=== PATIENT | female | born 1985 | race Two or more races ===

== ENCOUNTER 2023-05-04 09:00 | Outpatient (AMB) | payer OTHER, SELFPAY ==
[2023-05-04 09:06] VITALS: BP 116/64; PULSE 68; RESP 16; O2SAT 98
--- NOTE | 2023-05-04 09:06 | A.OFFPC_ITS ---
Vital Signs 05/04/23 09:06 Height 5 ft 6 in Weight 186 lb BMI 30.0 BP 116/64 Blood Pressure Location Lt brachial Position Sitting Respiration 16 Pulse 68 Pulse Source Pulse Oximeter Pulse Oximetry (%) 98 Oxygen Delivery Method Room Air Intake Visit Reasons: Annual PE Intake Note: Patient is here for her physical. Allergies No Known Allergies Allergy (Verified 05/04/23 09:09) Tobacco use date assessed: 05/04/23 Dental Screening Dental Screen Date: 05/04/23 Did you have a dental visit in the last 12 months?: Yes Did you have a dental problem in the last 6 months where you did not have access to dental care?: No Was dental information given to patient?: Patient has dentist HPI Annual PE HPI Details 37 y/o female presents for a CPE with f/ u labs and health maintenance. Has?not?been?seen?in?a?couple?of?years. No recent pap smear. Would like referral to [facility]. Would like to f/u / [facility] for Oral CA No recent labs to review. Hx oral cancer. Pt reports a bump on the back of her neck. She reports she has not been exercising much. [facility] Medical History (Updated 05/04/23 @ 10:00 by Todd Bryan) No pertinent past medical history Surgical History (Updated 04/07/23 @ 13:03 by Naty Galvez) History of breast augmentation History of palate surgery Family History (System 04/07/23 @ 13:03 by Naty Galvez) Mother Bipolar 1 disorder Father No problems noted. 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 1. Little interest or pleasure in doing things: not at all 2. Feeling down, depressed, or hopeless: not at all 3. Trouble falling or staying asleep, or sleeping too much: not at all 4. Feeling tired or having little energy: not at all 5. Poor appetite or overeating: not at all 6. Feeling bad about yourself - or that you are a failure or have let yourself or your family down: not at all 7. Trouble concentrating on things, such as reading the newspaper or watching television: not at all 8. Moving or speaking so slowly that other people could have noticed. Or the opposite - being so fidgety or restless that you have been moving around a lot more than usual: not at all 9. Thoughts that you would be better off or of hurting yourself in some way: not at all Total score: 0 Source: Developed by Drs. Daniel Fox, Tena Mcconnell, Donnie Morris and colleagues, with an educational aleks from [employer]. Thrive Questionnaire Date Thrive assessed: 01/21/21 I am a: Patient What is your living situation today?: I have a steady place to live Within the past 12 months, did the food you bought not last and you didn't have the money to get more?: Never true Within the past 12 months, did you worry whether your food would run out before you got money to buy more?: Never true Do you have trouble paying for medicines?: No Do you have trouble getting transportation to medical appointments?: No Do you have trouble paying your heating and electricity bill?: No Do you have trouble taking care of your child, family member or friend?: No Do you have trouble with day-to-day activities such as bathing, preparing meals, shopping, managing finances, etc.?: No Are you currently unemployed and looking for a job?: No Are you interested in more education?: Yes AUDIT C Alcohol Use Questionnaire (AUDIT-C) 1. How often do you have a drink containing alcohol?: Monthly or less 2. How many drinks containing alcohol do you have on a typical day when you are drinking?: 1 or 2 3. How often do you have six or more drinks on one occasion?: Never Total Score: 1 VERÓNICA-7 AMB Questionnaire VERÓNICA-7 Date VERÓNICA - 7 assessed: 05/04/23 Feeling nervous, anxious, or on edge: 1 = Several days Not being able to stop or control worryin = Nearly every day Worrying too much about different things: 3 = Nearly every day Trouble relaxin = Nearly every day Being so restless that it is hard to sit still: 3 = Nearly every day Becoming easily annoyed or irritable: 1 = Several days Feeling afraid as if something awful might happen: 0 = Not at all Total VERÓNICA-7 score (0-4 normal; 5-9 mild; 10-14 moderate; 15-21 severe): 14 Source: Developed by Drs. Daniel Fox, Tena Mcconnell, Donnie Morris and colleagues, with an educational aleks from [employer]. Review of Systems Const Denies chills, Denies fatigue, Denies fever(s), Denies headache(s) and Denies weakness Eyes Denies change in vision ENT Denies dizziness, Denies headache(s), Denies hearing loss, Denies nasal congestion, Denies sinus pain, Denies sinus pressure and Denies sore throat Card Denies chest pain, Denies lightheadedness, Denies dyspnea and Denies other (palpitations) Resp Denies cough, Denies dyspnea and Denies wheezing GI Denies abdominal pain, Denies melena, Denies hematochezia, Denies change in bowel habits, Denies dyspepsia and Denies nausea Denies hematuria and Denies dysuria Musc Denies abnormal gait, Denies myalgias, Denies arthralgias, Denies numbness and Denies tingling Skin/Breast Denies rash, Denies unusual bruising and Denies wounds Neuro Denies abnormal gait, Denies dizziness, Denies headache(s), Denies memory loss, Denies numbness, Denies Sensory deficit (Neuro), Denies tingling and Denies weakness Psych Denies anxiety, Denies depression and Denies memory loss Endo Denies cold intolerance, Denies fatigue, Denies heat intolerance, Denies polydipsia and Denies polyuria Enoch/Lymph Denies easy bleeding and Denies easy bruising Aller/Immun Denies wheezing Physical exam (Primary Care) Vital Signs: Last Vital Signs Pulse 68 05/04/23 09:06 Resp 16 05/04/23 09:06 BP 116/64 05/04/23 09:06 Pulse Ox 98 05/04/23 09:06 Oxygen Delivery Method Room Air 05/04/23 09:06 BMI result Body Mass Index 30.0 Tobacco/Smoking Status: Tobacco use Status Tobacco use date assessed 05/04/23 05/04/23 09:16 Patient Tobacco Use Status Never used Tobacco 05/04/23 09:16 e-Cigarette/Vaping Use Never Used 05/04/23 09:16 PHQ-9: PHQ-9 Score PHQ-9: Total score 0 05/04/23 09:16 Thrive Assessment: Date of Thrive Assessment Date Thrive assessed 01/21/21 05/04/23 09:16 Const General: no acute distress, well developed, alert and awake Nutritional Appearance: well nourished Orientation/consciousness: patient oriented x3 HENMT Head: Yes normocephalic and Yes atraumatic Ears: hearing grossly normal bilaterally and TM's normal bilaterally General nose exam: Normal external nose present and Normal nares present Mouth: Normal oral and palatal mucosa present and moist mucous membranes Teeth and gingiva: dentition normal Throat: Yes posterior oropharynx normal Eyes General: appearance normal, both eyes and all related structures Pupils: Equal, round and reactive pupils present and Pupil accommodation reflex normal EOM: EOMs intact bilaterally Neck Neck: Yes normal visual inspection, Yes no lymphadenopathy and Yes trachea midline Thyroid: Thyroid normal Carotids: no bruits Lymphatic: no lymphadenopathy noted Chest Chest palpation & inspection: normal inspection of the chest Resp Effort & Inspection: normal respiratory effort Auscultation: clear to auscultation bilaterally Cardio Rate: regular rate Rhythm: regular rhythm Heart sounds: S1 normal heart sound present, S2 normal heart sound present, no gallops, no murmurs and no rubs Bruits: no abdominal aortic bruits and no carotid bruits GI Palpation (GI): No Abdominal aortic bruit present, Soft to palpation, nontender, No hepatosplenomegaly present and No Rebound tenderness present Auscultation: normal bowel sounds General: Yes no CVA tenderness Back/Spine/Pelvis Back: no CVA tenderness Cervical Spine: cervical ROM normal and No Cervical spine tenderness Thoracic/Lumbar Spine: thoraco-lumbar ROM normal, No pain with thoraco-lumbar ROM, No thoracic spinal tenderness and No lumbar spinal tenderness Skin Lesions: no lesions Rashes: no rashes Trauma: no lacerations or abrasions Wounds: no wounds Nails: normal Neuro General: patient oriented x3 Cranial nerves: Yes Equal, round and reactive pupils present Cognition (Neuro): normal cognition Gait exam (Neuro): Normal gait present Motor exam (neuro): 5/5 motor strength present throughout Sensory Exam: No Sensory deficit (Neuro) Deep tendon reflexes (DTR's): Right patellar reflex intensity grade: 2+ and Left patellar reflex intensity grade: 2+ Extrem General: Yes normal to inspection and No edema Psych Appearance: grossly normal Affect: normal affect Attitude: cooperative Thought process: Normal thought process present Assessment and Plan Assessment & Plan (1) Adult general medical exam: Code(s): Z00.00 - Encounter for general adult medical examination without abnormal findings Plan: 37-year-old?female?presents?for?complete?physical?exam Encouraged?healthy?diet?with?active?lifestyle?and?plenty?of?exercise. (2) Screening for cervical cancer: Code(s): Z12.4 - Encounter for screening for malignant neoplasm of cervix Plan: Referred?to?OBGYN (3) H/O oral cancer: Code(s): Z85.819 - Personal history of malignant neoplasm of unspecified site of lip, oral cavity, and pharynx Plan: Prior?history?of?oral?cancer?found?at?[facility]. She?was to?have?follow-up?at?[facility]?but?says?that?this?di d?not?occur?due?to?COVID?pandemic. Referred?back?to?[facility] Orders: Orders Comprehensive [place]. Panel Fast Today Z00.00 - Encounter for general adult medical examination without abnormal findings Complete Blood Count Auto Diff Today Z00.00 - Encounter for general adult medical examination without abnormal findings Microalbumin, Random (w Creat) Today I10 - Essential (primary) hypertension TSH reflex Free T4 Today Z00.00 - Encounter for general adult medical examination without abnormal findings Influenza [id number] Immunization Today Z23 - Encounter for immunization Lipid Panel Today Z00.00 - Encounter for general adult medical examination without abnormal findings UA and rflx microscopic Today Z00.00 - Encounter for general adult medical examination without abnormal findings Referrals Ear/Nose/Throat Referral Z85.819 - Personal history of malignant neoplasm of unspecified site of lip, oral cavity, and pharynx BOTTLE CASER Referral Z12.4 - Encounter for screening for malignant neoplasm of cervix Medications: New flu vacc [id number] 6mos up(PF) 0.5 mL IM ONCE 0.5 mL 0RF Z23 - Encounter for immunization Coding Level of Care Code Est Pt Level 3 (48457) Est Pt Prev Care 18-39y(51134) Diagnoses Adult general medical exam Z00.00 Screening for cervical cancer Z12.4 H/O oral cancer Z85.819
== END 2023-05-04 10:35 | disposition home or self-care (01) ==
PROVIDERS: PCP Family Medicine; Visit Provider Family Medicine
DX: Z00.00 Encounter for general adult medical examination without abnormal findings (principal); Z85.819 Personal history of malignant neoplasm of unspecified site of lip, oral cavity, and pharynx; Z23 Encounter for immunization
CPT/HCPCS: 90471; 90686; 99395

== ENCOUNTER 2023-05-04 10:39 | Outpatient (REF) | payer OTHER, SELFPAY ==
[2023-05-04 14:21] LABS: MANUAL DIFF FLAG NO
[2023-05-04 14:24] LABS: Basophils Percent Auto 0.4 % (0-2); Eosinophils Absolute Auto 0.1 X10*3/uL (0.0-0.4); Eosinophils Percent Auto 1.5 % (0-4); Hematocrit 40.9 % (37.0-47.0); Hemoglobin 13.6 g/dl (12.0-16.0); Imm Gran Abs Auto 0.02 X10*3/uL (0.00-0.03); Imm Gran Pct Auto 0.3 % (0.0-0.4); Lymphocytes Absolute Auto 2.8 X10*3/uL (1.2-4.9); Lymphocytes Percent Auto 41.9 % (20-40); Mean Corpuscular HGB Conc 33.3 g/dl (31.0-35.0); Mean Corpuscular Hemoglobin 29.8 pg (27.0-33.0); Mean Corpuscular Volume 89.7 fL (80.0-98.0); Mean Platelet Volume 8.7 fL (9.4-12.3); Monocytes Absolute Auto 0.6 X10*3/uL (0.1-1.2); Monocytes Percent Auto 8.5 % (2-11); Neutrophils Absolute Auto 3.2 x10*3/uL (2.0-8.3); Neutrophils Percent Auto 47.4 % (45-73); Platelet Count 510 X10*3/uL (160-400); Red Blood Count 4.56 X10*6/uL (4.20-5.50); Red Cell Distribution Width 13.5 % (11.0-16.0); White Blood Count 6.7 X10*3/uL (4.8-10.8)
[2023-05-04 14:36] LABS: Alanine Aminotransferase 13 U/L (0-31); Albumin Level 4.1 g/dL (3.5-5.0); Alkaline Phosphatase 49 U/L (39-117); Anion Gap 12 (12-20); Aspartate Amino Transferase 15 U/L (5-31); Bilirubin Total 0.3 mg/dL (0.0-1.0); Blood Urea Nitrogen 8 mg/dL (9-16); Calcium 9.4 mg/dL (8.4-10.2); Carbon Dioxide 27 mmol/L (22-29); Chloride 104 mmol/L (96-108); Cholesterol 199 mg/dL (<200); Estimated Glomerular Filt Rate > 60; Glucose Fasting 91 mg/dL (60-99); HDL Cholesterol 64 mg/dL (>40); LDL Cholesterol Calculated 119 mg/dL (<100); Potassium 4.5 mmol/L (3.3-5.1); Sodium 138 mmol/L (135-145); Total Protein 7.7 g/dL (6.5-8.0); Triglycerides 84 mg/dL (<150)
[2023-05-04 14:56] LABS: TSH reflex Free T4 1.86 uIU/mL (0.32-4.0)
[2023-05-04 15:05] LABS: Appearance Urine Cloudy; Color Urine Yellow; Glucose Urine UA Negative (Negative); Leukocyte Esterase Urine Negative (Negative); Nitrite Urine Negative (Negative); Specific Gravity - Urine 1.015 (1.005-1.025); Urine Blood Negative (Negative); Urine Ketones Negative (Negative); Urine Protein Negative (Neg-Trace)
[2023-05-04 15:35] LABS: Creatinine Urine 80.93 mg/dL; Microalbumin Urine < 5.0 mg/L
== END 2023-05-04 10:40 | disposition home or self-care (01) ==
LOC: HO.WFDLDS 10:39
PROVIDERS: Visit Provider Family Medicine
DX: Z00.00 Encounter for general adult medical examination without abnormal findings (principal); I10 Essential (primary) hypertension
CPT/HCPCS: 36415; 80053; 80061; 81003; 82043; 82570; 84443; 85025

== ENCOUNTER 2023-08-11 10:36 | Outpatient (REF) | payer OTHER, SELFPAY ==
[2023-08-12 01:49] LABS: CT PCR NOT DETECTED (Not Detect.); NG PCR NOT DETECTED (Not Detect.)
[2023-08-12 14:50] LABS: BV Int Neg Control Negative (Negative); BV Int Pos Control Positive (Positive)
[2023-08-18 22:08] LABS: HPV mRNA E6/E7 rflx Not Detected (Not Detected)
== END 2023-08-11 10:37 | disposition home or self-care (01) ==
LOC: HO.LAB 10:36
PROVIDERS: PCP Family Medicine; Visit Provider Advanced Practice Midwife
DX: Z01.419 Encounter for gynecological examination (general) (routine) without abnormal findings (principal); Z85.819 Personal history of malignant neoplasm of unspecified site of lip, oral cavity, and pharynx; Z98.82 Breast implant status; Z20.2 Contact with and (suspected) exposure to infections with a predominantly sexual mode of transmission
CPT/HCPCS: 0353U; 87480; 87510; 87624; 87660; 88142

== ENCOUNTER 2023-08-11 10:36 | Outpatient (AMB) | payer OTHER, SELFPAY ==
--- NOTE | 2023-08-11 10:43 | MHC.OFFVIS ---
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 She delivered all 3 of her children at [facility] vaginally. Around 2013 she was diagnosed with oral cancer and had it removed from her palate and then it recurred 5 years later. She was originally diagnosed by her dentist who had done the biopsy she was referred to ENT and then when it recurred she was referred to [facility]. She saw a wonderful doctor who made her prosthesis and she had multiple visits with him at the time when there was being fitted. He has since and she is concerned about what will happen if it ever breaks. Her next appointment with [facility] is in the fall. She also was told that the kind of cells that were involved in her cancer might have some connection with breast cancer. She recalls being told that there was not any HPV connection at all. She said that she felt very barbara that she did not not lose her teeth or anything in the surgery or the treatment. [facility] Medical History No pertinent past medical history Surgical History History of breast augmentation History of palate surgery Family History Mother Bipolar 1 disorder Father No problems noted. 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 [employer] Cognitive needs: No Hearing needs: No Vision needs: No Female Reproductive History Menstrual Age of Menarche: 11 Duration of menses: 3-5 days Date of last menstrual period: 07/16/23 control method: none and other (vasectomy) Total pregnancies: 3 Full term: 3 Date of last pap smear: 05/24/18 (negative) History of abnormal pap smear: No Physical Exam Const General: healthy appearing, comfortable, no acute distress, well developed and alert Nutritional Appearance: average body habitus Orientation/consciousness: patient oriented x3 Limitations: no limitations HEENT Other: Patient removed her upper palate prosthesis for which she had a special name to show it to me. Head: Yes normocephalic Neck Neck: Yes normal visual inspection Chest Other: Patient has bilateral breast implants Chest palpation & inspection: normal inspection of the chest Breast/axilla inspection: normal inspection of the breasts and normal inspection of the axillae Breast/axilla palpation: normal palpation of the breasts and normal palpation of the axillae Resp Effort & Inspection: normal respiratory effort GI Inspection: Yes normal to inspection, No Abdominal wall edema and No distended Palpation (GI): Soft to palpation and nontender Other: External vaginal exam completely within normal limits vagina pink and moist cervix multiparous pink smooth completely normal with small nabothian cyst at 04:00 o'clock. Pap and testing done for gonorrhea chlamydia trichomoniasis Gardnerella and Mera. Uterus is small retroverted mobile nontender adnexa nontender very excellent tone with Kegel. General: Yes bladder normal to palpation External Female Exam: normal external appearance and normal appearance of the urethra Speculum Exam - Vagina: normal appearance of the vagina, normal palpation and normal vaginal discharge Speculum Exam - Cervix: normal appearance of the cervix, normal palpation and nontender Bimanual exam- vagina & uterus: normal bimanual exam, normal palpation, uterine size normal, bladder normal to palpation, consistency normal, normal palpation, uterine mobility normal, uterine shape normal, No Cervical tenderness present, non-tender and no cervical motion tenderness Bimanual Exam- Adnexa, other: normal adnexae, no masses, normal and No adnexal tenderness Neuro General: patient oriented x3 Assessment & Plan Assessment & Plan (1) Screening for cervical cancer: Code(s): Z12.4 - Encounter for screening for malignant neoplasm of cervix (2) H/O oral cancer: Comment: Two thousand [age] and recurred 5 years later has prosthesis for her palate. Is followed at [facility]. Code(s): Z85.819 - Personal history of malignant neoplasm of unspecified site of lip, oral cavity, and pharynx (3) History of bilateral breast implants: Code(s): Z98.82 - Breast implant status Plan -----Discussed in this visit the following: healthy balanced diet, regular and consistent exercise, getting recommended health screens, doing the best she can for her particular health concerns, kegel exercises, pap smear screening and followup recommendations, mammography screening and SBE, normal changes in cycles in her life stage--- . Reviewed Paps smear screening and that if this Pap smear is normal she would not be due for another 1 for 5 years reviewed the potential for HPV to be implicated in oral cancers but she says she was told that in her case it was not that it was a gene mutation. She remembers being told something about the those kinds of cells that were implicated in her cancer also have some connection with breast cancers so I recommend that she follow through and inquire with [facility] as to whether not she would qualify for early mammograms. She is also interested in getting her breast implants removed so she may have this same conversation with them or other providers. Additionally the physician who crafting her very specific oral prosthesis has and he had a specialty skill that the closest other practitioner who could craft 1 at the time lived in [place]. She has had nightmares of it breaking and that she will be left with nothing, So I recommend having that conversation also with her providers at [facility] as to whether not a 3D replica of her prosthesis can be made before something happens to it. Coding Level of Care Code New Pt Prev Care 18-39yr([id number] Diagnoses Screening for cervical cancer Z12.4 H/O oral cancer Z85.819 History of bilateral breast implants Z98.82
[2023-08-11 10:48] VITALS: BP 120/62; BMI 28.4
== END 2023-08-11 11:33 | disposition home or self-care (01) ==
LOC: HO.HWSM 10:36
PROVIDERS: PCP Family Medicine; Visit Provider Advanced Practice Midwife
DX: Z01.419 Encounter for gynecological examination (general) (routine) without abnormal findings (principal); Z98.82 Breast implant status; Z85.819 Personal history of malignant neoplasm of unspecified site of lip, oral cavity, and pharynx
CPT/HCPCS: 99385

== ENCOUNTER 2024-08-15 09:31 | Outpatient (AMB) | payer OTHER, SELFPAY ==
--- NOTE | 2024-08-15 09:32 | MHC.OFFVIS ---
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 She is not having any lead neurodiagnostic technologist concerns whatsoever. She gets regular periods her has a vasectomy. 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 She is very busy with her 3 small children. She had an appointment scheduled to be seen for her regular checkup at [facility] but her insurance or something had changed and they needed a referral and the referral was not able to be sent in time so that appointment got canceled. She has left messages for her primary and has not been able to meet with success about getting that referral sent. Additionally she has not been able to see the dental specialists she would have needed to follow-up with whom to discuss her prosthesis. As far as she remembers she was told that [facility] that she did not need any earlier breast cancer screening. Please see notes from last year's visit. Her breast implants were placed when she was young for cosmetic reasons/ [facility] Medical History (Updated 08/15/24 @ 10:13 by Fani Lantigua CNM) No pertinent past medical history Surgical History (Updated 08/15/24 @ 10:13 by Fani Lantigua CNM) History of breast augmentation Family History Mother Bipolar 1 disorder Father No problems noted. 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 [employer] Cognitive needs: No Hearing needs: No Vision needs: No Female Reproductive History Menstrual Age of Menarche: 11 Duration of menses: 3-5 days Date of last menstrual period: 07/18/24 control method: other (vasectomy) Total pregnancies: 3 Full term: 3 Number of Living Children: 3 Date of last pap smear: 08/12/23 Physical Exam Vital Signs: Last Vital Signs BP 94/60 08/15/24 09:33 BMI result Body Mass Index 27.9 Const General: healthy appearing, comfortable, no acute distress, well developed and alert Nutritional Appearance: average body habitus Orientation/consciousness: patient oriented x3 Limitations: no limitations HEENT Head: Yes normocephalic Neck Neck: Yes normal visual inspection Chest Chest palpation & inspection: normal inspection of the chest Breast/axilla inspection: normal inspection of the breasts and normal inspection of the axillae Breast/axilla palpation: normal palpation of the breasts and normal palpation of the axillae Resp Effort & Inspection: normal respiratory effort GI Inspection: Yes normal to inspection, No Abdominal wall edema and No distended Palpation (GI): Soft to palpation and nontender Other: Normal external exam vagina pink clear healthy appearing normal appearing healthy mucous cervix multiparous pink smooth mobile nontender uterus midposition mobile nontender adnexa nontender extremely good tone with Kegel. General: Yes bladder normal to palpation External Female Exam: normal external appearance and normal appearance of the urethra Speculum Exam - Vagina: normal appearance of the vagina, normal palpation and normal vaginal discharge Speculum Exam - Cervix: normal appearance of the cervix, normal palpation and nontender Bimanual exam- vagina & uterus: normal bimanual exam, normal palpation, uterine size normal, bladder normal to palpation, consistency normal, normal palpation, uterine mobility normal, uterine shape normal, No Cervical tenderness present, non-tender and no cervical motion tenderness Bimanual Exam- Adnexa, other: normal adnexae, no masses, normal and No adnexal tenderness Neuro General: patient oriented x3 Results Reviewed Results Reviewed: Name: Kannan Townsend Age/Sex: 37/F Attending: Fani Lantigua CNM : 1985 Submitted by: Fani Lantigua CNM Copies to: Froylan Broussard MD MR #: [id number] Status: DEP REF Collected: 08/11/23 Location: .LAB Received: 08/12/23 Interpretation Satisfactory for evaluation. Moderate inflammation. Negative for intraepithelial lesion or malignancy. HPV mRNA E6/E7: NOT DETECTED This assay detects E6/E7 viral messenger RNA (mRNA) from 14 high-risk HPV types (16, 18, 31, 33, 35, 39, 45, 51, 52, 56, 58, 59, 66, 68) HPV testing performed by [facility], [place], [place]. See reference laboratory portion of the EMR for entire report. Clinical Information LMP: 07/16/2023 Previous PAP test: 2018, WNL Material Received ThinPrep-Cervical Copies To Froylan Broussard MD [address] [facility]. [place], [place] [id number] Fani Lantigua [address] Correa [address] [place] [address] [phone] Electronically Signed By: NNEKA Edwards (ASCP) 08/24/23 0708 The Pap Test is a screening procedure with the inherent possibility of both false negative and false positive results. Results should be interpreted in the context of historic and current clinical findings. Reliability of the Pap Test is enhanced by performing the test on a regular repetitive basis. 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 Is followed at [facility]. Code(s): Z85.819 - Personal history of malignant neoplasm of unspecified site of lip, oral cavity, and pharynx Category: Medical (4) Breast cancer screening: Code(s): Z12.39 - Encounter for other screening for malignant neoplasm of breast Category: Medical (5) Well woman exam with routine gynecological exam: Code(s): Z01.419 - Encounter for gynecological examination (general) (routine) without abnormal findings Category: Medical Plan -----Discussed in this visit the following: healthy balanced diet, regular and consistent exercise, getting recommended health screens, doing the best she can for her particular health concerns, kegel exercises, pap smear screening and followup recommendations, mammography screening and SBE, normal changes in cycles in her life stage--- . Discussed her history of the oral cancer. She is going to just go see her primary care provider to work on getting the referral back to [facility] so that she can be seen I recommend just revisiting the conversation about whether not she needs any other early screening for breast cancers even what she was told about the cells in her cancer that were similar to those found in breast cancer. Otherwise breast cancer screening with started age 40. reviewed that her Pap smear was negative r Pap in 2023 her ne smear xt Pap is due in 2028. We sa to the seen every year y but she has no lead neurodiagnostic technologist or control concerns she may schedule her appointments accordingly if she needs to be seen more by primary care and [facility] and dental prosthetic providers. This note is constructed using voice recognition software. While every effort has been made to ensure accuracy, splitter head errors may have been included. Coding Level of Care Code Est Pt Prev Care 18-39y([id number]) Diagnoses Screening for cervical cancer Z12.4 History of bilateral breast implants Z98.82 H/O oral cancer Z85.819 Breast cancer screening Z12.39 Well woman exam with routine gynecological exam Z01.419
[2024-08-15 09:33] VITALS: BP 94/60; BMI 27.9
--- OUTSIDE RECORDS SUMMARY | 2024-08-15 10:20 | XMS_ITS | Continuity of Care Document ---
Author Name [facility] Organization [facility] Care Team Providers Care Credit Portfolio Advisor Name Role Phone [facility] Unavailable Unavailable Problems Combined list of problems from Department of Defense and Veterans Affairs facilities. It does not include entries that were removed or entered in error. Problem Status Onset Date Problem Type Date of Resolution Comments Source constipation functional Inactive 8 Condition DoD nonorganic sleep disorders Inactive Condition DoD conjunctivitis acute left eye Inactive Condition early conjunctivitis erythomycin ointment. apply to left eyelid TID DoD Immunizations Combined list of available immunizations from the Department of Defense and Veterans Affairs facilities. Immunization Series Date Given Administered By Site Reaction Lot Number CVX Code Drug Film Mounter Status Comments Source influenza virus vaccine, inactivated 2023 EDDIE Carney anyi, left (delt oid) [id number] [employer], COIN[employer]US complet ed influenza virus vaccine, inactivat ed 04/05/24 Given 8203R-1 04 MDG tetanus, diphtheria, acellular pertu is 2023 OLIMPIA Carney anyi, left (delt oid) [id number] sanofi pasteur complet ed tetanus, diphtheri a, acellular pertussis 09/11/23 Given 8203R-1 04 MDG influenza, injectable, quadrivalent 2020 [id number] 158 GlaxoSmithKli ne complet ed influenza , injectabl e, quadrival ent 03/23/21 Given Ambulat ory Pharmac y influenza, injectable, quadrivalent, contains preservative 1 2020 [id number] 158 [facility] (SKB) complet ed influenza , injectabl e, quadrival ent, contains preservat chirag DoD COVID Vaccine Moderna 2020 [id number] complet ed COVID Vaccine Moderna 09/21/20 Given Ambulat ory Pharmac y SARS-COV-2 (COVID-19) vaccine, mRNA, spike protein, LNP, preservative free, 100 mcg or 50 mcg dose 2 2020 [id number] 207 Moderna DeepFlex[employer] Inc. (MOD) complet ed SARS-COV- 2 (COVID-19 ) vaccine, mRNA, spike protein, LNP, preservat chirag free, 100 mcg or 50 mcg dose DoD COVID Vaccine Moderna 2020 [id number] complet ed COVID Vaccine Moderna 08/19/20 Given Ambulat ory Pharmac y SARS-COV-2 (COVID-19) vaccine, mRNA, spike protein, LNP, preservative free, 100 mcg or 50 mcg dose 1 2020 [id number] 207 Moderna DeepFlex, Inc. (MOD) complet ed SARS-COV- 2 (COVID-19 ) vaccine, mRNA, spike protein, LNP, preservat cihrag free, 100 mcg or 50 mcg dose DoD influenza virus vaccine, inactivated 2019 [id number] Seqirus complet ed influenza virus vaccine, inactivat ed 03/22/20 Given Ambulat ory Pharmac y Influenza, injectable, Madin Radha Canine Kidney, quadrivalent with preservative 1 2019 [id number] 186 Seqirus (SEQ) comple t ed Influenza , injectabl e, Madin Radha Canine Kidney, quadrival ent with preservat chirag DoD influenza, injectable, quadrivalent- pf 2018 [id number] 150 Seqirus complet ed influenza , injectabl e, quadrival ent-pf 03/12/19 Given Ambulat ory Pharmac y Influenza, injectable, quadrivalent, preservative free 14 2018 [id number] 150 Seqirus (SEQ) complet ed Influenza , injectabl e, quadrival ent, preservat chirag free DoD influenza, injectable, quadrivalent 2017 [id number] 158 Seqirus complet ed influenza , injectabl e, quadrival ent 04/08/18 Given Ambulat ory Pharmac y influenza, injectable, quadrivalent, contains preservative 13 2017 [id number] 158 Seqirus (SEQ) comple t ed influenza , injectabl e, quadrival ent, contains preservat chriag DoD influenza, seasonal, injectable 2016 [id number] 141 complet ed influenza , seasonal, injectabl e 03/02/17 Given Ambulat ory Pharmac y Influenza, seasonal, injectable 1 2016 141 Transcribed (TRS) complet ed Influenza , seasonal, injectabl e DoD influenza, seasonal, injectable-pf 2015 [id number] 140 Seqirus complet ed influenza , seasonal, injectabl e-pf 03/22/16 Given Ambulat ory Pharmac y Influenza, seasonal, injectable, preservative free 11 2015 [id number] 140 Seqirus (SEQ) comple t ed Influenza , seasonal, injectabl e, preservat chirag free DoD influenza, live, intranasal,qu adrivalent 2012 [id number] 149 [employer] Inc comple t ed influenza , live, intranasa l,quadriv alent 05/14/13 Given Ambulat ory Pharmac y tetanus, diphtheria, acellular pertu is 2012 [id number] 115 sanofi pasteur complet ed tetanus, diphtheri a, acellular pertussis 05/14/13 Given Ambulat ory Pharmac y tetanus toxoid, reduced diphtheria toxoid, and acellular pertu is vaccine, adsorbed 0 2012 [id number] 115 Sanofi Pasteur (PMC) complet ed tetanus toxoid, reduced diphtheri a toxoid, and acellular pertussis vaccine, adsorbed DoD influenza, live, intranasal, quadrivalent 11 2012 [id number] 149 [employer] Inc. (MED) complet ed influenza , live, intranasa l, quadrival ent DoD influenza, seasonal, injectable-pf 2010 [id number] 140 Novartis Pharmaceutica ls complet ed influenza , seasonal, injectabl e-pf 04/14/11 Given Ambulat ory Pharmac y influenza virus vaccine, live 2010 [id number] 111 Novartis Pharmaceutica ls complet ed influenza virus vaccine, live 04/14/11 Given Ambulat ory Pharmac y influenza virus vaccine, live, attenuated, for intranasal use 1 2010 [id number] 111 Novartis Pharmaceutica l Boris. (NOV) complet ed influenza virus vaccine, live, attenuate d, for intranasa l use DoD Influenza, seasonal, injectable, preservative free 1 2010 140 Novartis Pharmaceutica l Boris. (NOV) complet ed Influenza , seasonal, injectabl e, preservat chirag free DoD influenza virus vaccine,split 2009 [id number] 15 sanofi pasteur complet ed influenza virus vaccine,s plit 05/11/10 Given Ambulat ory Pharmac y influenza virus vaccine, split virus (incl. purified surface antigen)-reti red CODE 1 2009 [id number] 15 Sanofi Pasteur ([facility]) complet ed influenza virus vaccine, split virus (incl. purified surface antigen)- retired CODE DoD Novel influenza-H1N 1-09, injectable 2009 [id number] 1 127 Novartis Pharmaceutica ls complet ed Novel influenza -[id number], injectabl e 07/15/09 Given Ambulat ory Pharmac y Novel influenza-H1N 1-09, injectable 1 2009 [id number] 1 127 Novartis Pharmaceutica l Borsi. (NOV) complet ed Novel influenza -[id number], injectabl e DoD influenza virus vaccine, live 2008 [id number] 111 Avosoftune Inc comple t ed influenza virus vaccine, live 04/15/09 Given Ambulat ory Pharmac y influenza virus vaccine, live, attenuated, for intranasal use 1 2008 [id number] 111 MedImmune, Inc. (MED) complet ed influenza virus vaccine, live, attenuate d, for intranasa l use DoD tuberculin purified protein derivative 2008 [id number] 96 sanofi pasteur complet ed tuberculi n purified protein derivativ e 07/15/08 Given Ambulat ory Pharmac y tuberculin purified protein derivative 2007 [id number] 96 sanofi pasteur complet ed tuberculi n purified protein derivativ e 04/08/08 Given Ambulat ory Pharmac y influenza virus vaccine, live 2007 [id number] 111 Avosoft[employer] Inc comple t ed influenza virus vaccine, live 04/08/08 Given Ambulat ory Pharmac y influenza virus vaccine, live, attenuated, for intranasal use 1 2007 [id number] 111 MedImmune, Inc. (MED) complet ed influenza virus vaccine, live, attenuate d, for intranasa l use DoD anthrax vaccine 2007 [id number] Emergent Bios[employer] complet ed anthrax vaccine 12/03/07 Given Ambulat ory Pharmac y anthrax vaccine 4 2007 [id number] [employer]gent [employer] ([facility]) complet ed anthrax vaccine DoD influenza virus vaccine, live 2006 [id number] 111 Decisivune Inc comple t ed influenza virus vaccine, live 05/09/07 Given Ambulat ory Pharmac y anthrax vaccine 2006 [id number] [employer] complet ed anthrax vaccine 05/09/07 Given Ambulat ory Pharmac y anthrax vaccine 3 2006 [id number] 24 [employer] ([facility]) complet ed anthrax vaccine DoD influenza virus vaccine, live, attenuated, for intranasal use 1 2006 [id number] 111 [employer]. (MED) complet ed influenza virus vaccine, live, attenuate d, for intranasa l use DoD anthrax vaccine 2006 [id number] 24 [employer] complet ed anthrax vaccine 04/25/07 Given Ambulat ory Pharmac y anthrax vaccine 2 2006 [id number] [employer] ([facility]) complet ed anthrax vaccine DoD anthrax vaccine 2006 [id number] [employer] complet ed anthrax vaccine 04/10/07 Given Ambulat ory Pharmac y typhoid Vi capsular polysaccharid e vac 2006 [id number] 101 sanofi pasteur complet ed typhoid Vi capsular polysacch aride vac 04/10/07 Given Ambulat ory Pharmac y anthrax vaccine 1 2006 [id number] 24 [employer] ([facility]) complet ed anthrax vaccine DoD typhoid Vi capsular polysaccharid e vaccine 1 2006 [id number] 101 Sanofi Pasteur (PMC) complet ed typhoid Vi capsular polysacch aride vaccine DoD influenza virus vaccine,split 2005 [id number] 15 sanofi pasteur complet ed influenza virus vaccine,s plit 04/26/06 Given Ambulat ory Pharmac y influenza virus vaccine, split virus (incl. purified surface antigen)-reti red CODE 1 2005 [id number] 15 Sanofi Pasteur (PMC) complet ed influenza virus vaccine, split virus (incl. purified surface antigen)- retired CODE DoD vaccinia (smallpox) vaccine 2005 [id number] 75 [employer] complet ed vaccinia (smallpox ) vaccine 08/13/05 Given Ambulat ory Pharmac y vaccinia (smallpox) vaccine 1 2005 [id number] 75 [facility] ([facility]) complet ed vaccinia (smallpox ) vaccine DoD influenza virus vaccine,split 2005 [id number] 15 sanofi pasteur complet ed influenza virus vaccine,s plit 06/15/05 Given Ambulat ory Pharmac y influenza virus vaccine, split virus (incl. purified surface antigen)-reti red CODE 1 2005 [id number] 15 Sanofi Pasteur ([facility]) complet ed influenza virus vaccine, split virus (incl. purified surface antigen)- retired CODE DoD typhoid Vi capsular polysaccharid e vac 2004 [id number] 101 sanofi pasteur complet ed typhoid Vi capsular polysacch aride vac 08/10/04 Given Ambulat ory Pharmac y hepatitis A adult vaccine 2004 [id number] 52 Merck & Company Inc complet ed hepatitis A adult vaccine 08/10/04 Given Ambulat ory Pharmac y hepatitis A vaccine, adult dosage 2 2004 [id number] 52 Merck (MSD) complet ed hepatitis A vaccine, adult dosage DoD typhoid Vi capsular polysaccharid e vaccine 0 2004 [id number] 101 Sanofi Pasteur ([facility]) complet ed typhoid Vi capsular polysacch aride vaccine DoD influenza virus vaccine, live 2004 [id number] 111 Avos[employer] Inc comple t ed influenza virus vaccine, live 06/15/04 Given Ambulat ory Pharmac y influenza virus vaccine, live, attenuated, for intranasal use 0 2004 [id number] 111 [employer] (MED) complet ed influenza virus vaccine, live, attenuate d, for intranasa l use DoD varicella virus vaccine 2003 [id number] 21 Merck & Company Inc complet ed varicella virus vaccine 12/30/03 Given Ambulat ory Pharmac y varicella virus vaccine 2 2003 [id number] 21 Merck (MSD) complet ed varicella virus vaccine DoD measles/mumps /rubella virus vaccine 2003 [id number] 03 Merck & Company Inc complet ed measles/m umps/rube lla virus vaccine 11/29/03 Given Ambulat ory Pharmac y hepatitis A adult vaccine 2003 [id number] 52 GlaxoSmithKli ne complet ed hepatitis A adult vaccine 11/29/03 Given Ambulat ory Pharmac y varicella virus vaccine 2003 [id number] 21 Merck & Company Inc complet ed varicella virus vaccine 11/29/03 Given Ambulat ory Pharmac y measles, mumps and rubella virus vaccine 0 2003 [id number] 03 Merck (MSD) complet ed measles, mumps and rubella virus vaccine DoD varicella virus vaccine 1 2003 [id number] 21 Merck (MSD) complet ed varicella virus vaccine DoD hepatitis B vaccine, adult dosage 1 2003 43 () Not Given hepatitis B vaccine, adult dosage DoD hepatitis A vaccine, adult dosage 1 2003 [id number] 52 [employer] (SKB) complet ed hepatitis A vaccine, adult dosage DoD tuberculin purified protein derivative 2003 [id number] 96 sanofi pasteur complet ed tuberculi n purified protein derivativ e 11/24/03 Given Ambulat ory Pharmac y meningococcal polysaccharid e (MPSV4) 2003 [id number] 32 sanofi pasteur complet ed meningoco ccal polysacch aride (MPSV4) 11/24/03 Given Ambulat ory Pharmac y tetanus-dipht h toxoids (Td) adult/adol 2003 [id number] 09 sanofi pasteur complet ed tetanus-d iphth toxoids (Td) adult/ado l 11/24/03 Given Ambulat ory Pharmac y poliovirus vaccine, inactivated 2003 [id number] 10 sanofi pasteur complet ed polioviru s vaccine, inactivat ed 11/24/03 Given Ambulat ory Pharmac y influenza virus vaccine, whole virus 2003 [id number] 16 Novartis Pharmaceutica ls complet ed influenza virus vaccine, whole virus 11/24/03 Given Ambulat ory Pharmac y tetanus and diphtheria toxoids, adsorbed, preservative free, for adult use (2 Lf of tetanus toxoid and 2 Lf of diphtheria toxoid) 0 2003 [id number] 09 Sanofi Pasteur (PMC) complet ed tetanus and diphtheri a toxoids, adsorbed, preservat chirag free, for adult use (2 Lf of tetanus toxoid and 2 Lf of diphtheri a toxoid) DoD poliovirus vaccine, inactivated 0 2003 [id number] 10 Sanofi Pasteur (PMC) complet ed polioviru s vaccine, inactivat ed DoD influenza virus vaccine, whole virus 0 2003 [id number] 16 [employer] ls (PWJ) complet ed influenza virus vaccine, whole virus DoD meningococcal polysaccharid e vaccine (MPSV4) 0 2003 [id number] 32 Sanofi Pasteur (PMC) complet ed meningoco ccal polysacch aride vaccine (MPSV4) DoD Results Combined list of recent chemistry, hematology and other laboratory results from Department of Defense and Veterans Affairs, ranging from 15 months to all on record, depending upon the facility. Order Name Results Value Reference Range Date Interpretation Specimen Comments Source Infectiou s Disease HIV-1/O/2 Non-Reac tive 1 (09/11/23 4:15 PM) 09/10 N Interpretiv e Data: INTERPRETAT ION: This method is a screening procedure for the detection of HIV p24 Antigen and Antibodies to HIV-1, including Group O, and/or HIV-2. NON-REACTIV E: HIV-1 antigen and HIV-1 / HIV-2 antibodies were not detected. No laboratory evidence of HIV infection. A negative test result does not exclude the possibility of exposure to or infection with HIV. HIV antibodies and/or p24 antigen may be undetectabl e in some stages of the infection and in some clinical conditions. If acute HIV infection is suspected, consider submitting another specimen to a reference laboratory for HIV-1 RNA. SCREEN REACTIVE - CONFIRMATIO N TO FOLLOW: Possible presence of HIV-1antibo dies, HIV-2 antibodies and/or HIV-1 p24 antigen. Specimen will reflex to the confirmatio n testing that fulfills the Center for Disease Control and Prevention' s HIV diagnostic algorithm. Refer to [facility] Lab Guide for additional information : [email or web address] x Testing performed by [facility] Miscellan eous Sendouts Repository Sample Received (09/11/23 4:15 PM) 09/10 N [facility] Encounters Combined list of: 1) Encounters from Department of Veterans Affairs facilities going backup to the last 18 months, not all VA inpatient encounters are included; 2) Encounters from the Department of Defense facilities going backup to 280 months. Location Location Details Encounter Type Encounter Number Reason For Visit Attending Provider ADM Date DC Date Status Disposition Source Deni Gupta [facility] OUTPATIENT [id number] STEPHAN WRIGHT I 07/13 Released w/o Limitations Deni Lolisa francisco j [facility] OUTPAT[facility] [id number] 09/13 [facility]ased w[facility] Limitations [facility] OUT[facility] [id number] 12/29 Released w/o Limitations [facility] OUT[facility] [id number] 01/16 Released w/o Limitations [facility] [place] [place] [address](AFN G 104 Med Sq-FM) OUTPATIENT [id number] MARGIE VALENZUELA 09/12 Released w/o Limitations [facility] [place] [address](A FNG 104 Med Sq-FM) [place] [address](AFN G 104 Med Sq-FM) OUTPATIENT [id number] Notes Entered by: SEBAS DOMINGUEZ 12 Feb 2018 1456 ------- ------- ------- ------- -- SEBAS LESTER 02/12 Released with Work/Duty Limitations [facility] [place] [address](A FNG 104 Med Sq-FM) [place] [address](AFN G 104 Med Sq-FM) TELE CONSULT [id number] SEBAS DOMINGUEZ 06/20 [facility] [place] [address](A FNG 104 Med Sq-FM) 8203R-104 MDG Care Not Rendered [id number] 09/10 Discharge Disposition: Home or Self Care 8203R-1 04 MDG 8203R-104 [facility]G Outpatient [id number] JUDE JESUS 11/05 Discharge Disposition: Home or Self Care 8203R-1 04 MDG 8203R-104 MDG [place] Vaccine [id number] 04/05 8203R-1 04 MDG Procedures Combined list of: 1) Procedures from Department of Veterans Affairs facilities [facility], not all [facility] non-surgical procedures are included; 2) All procedures from the Department of Defense facilities. Procedure Procedure Type Code Date Perfomer Comments Sourc e No data available for this section Ambulatory P harmacy Social History Combined list of available smoking, tobacco, and other social history from Department of Defense and Veterans Affairs facilities. Social History Type Response Date Comment Sourc e Tobacco smoking status NHIS QUIT TOBACCO USE 1-7 YEARS AGO 09/21/2008 occasional smoker when with friends, none for over one year ENDEAVOR This section is an empty social history section. DoD Assessment and Plan Combined list of future care activities from Department of Defense and Veterans Affairs facilities (e.g., assessment and plan notes, appointments, orders, and referrals). Additional future care activities may be listed in the Plan of Care section. Result Assessment and Plan Date Source Assessment and Plan No data available for this section 08/15/2024 Ambulatory Pharmacy Functional Status Combined list of recent functional and cognitive assessments recorded at Department of Defense and Veterans Affairs (VA).VA Functional [place] Measurement (FIM) Scale: 1 = Total Assistance (Subject = 0% +), 2 = Maximal Assistance (Subject = 25% +), 3 = Moderate Assistance (Subject = 50% +), 4 = Minimal Assistance (Subject = 75% +), 5 = Supervision, 6 = Modified [place] (Device), 7 = Complete [place] (Timely, Safely). Assessment Date/Time Source Assessment Type Assessment Skill Assessment Score Assessment Details No data available for this section
== END 2024-08-15 10:11 | disposition home or self-care (01) ==
LOC: HO.HWS 09:31
PROVIDERS: PCP Family Medicine; Visit Provider Advanced Practice Midwife
DX: Z01.419 Encounter for gynecological examination (general) (routine) without abnormal findings (principal); Z98.82 Breast implant status
CPT/HCPCS: 99395; 99459

== ENCOUNTER → 2024-08-15 09:31 | Outpatient (BNVA) | payer OTHER, SELFPAY | PROVIDERS: PCP Family Medicine; Visit Provider Advanced Practice Midwife | DX: Z01.419 Encounter for gynecological examination (general) (routine) without abnormal findings (principal); Z12.39 Encounter for other screening for malignant neoplasm of breast; Z85.819 Personal history of malignant neoplasm of unspecified site of lip, oral cavity, and pharynx; Z98.82 Breast implant status; Z12.4 Encounter for screening for malignant neoplasm of cervix | CPT/HCPCS: 99395; 99459 ==

== ENCOUNTER 2024-08-24 11:28 | Outpatient (AMB) | payer OTHER, SELFPAY ==
--- NOTE | 2024-08-24 11:31 | MHC.PC.OV ---
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: No Allergies No Known Allergies Allergy (Verified 08/24/24 11:39) Medication List - Last Reconciled 08/24/24 by SCOT Beard No Known Home Meds Tobacco use date assessed: 08/24/24 Dental Screening Dental Screen Date: 08/24/24 Did you have a dental visit in the last 12 months?: Yes Did you have a dental problem in the last 6 months where you did not have access to dental care?: No Was dental information given to patient?: Patient has dentist HPI HPI Comments History of Present Illness Details 38 y/o F with oral cancer s/p breast augmentation, palate surgery 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 - The carcinoma?s recurrence was attributed to incomplete surgical removal in 2012, necessitating further surgery. Extension into the maxillary bone led to a palatal defect repaired with an obturator. - Environment exposure during deployments to [place] may be a contributing factor. - The patient expressed anxiety about initial recommendations for radiation therapy, which was not carried out due to consultation opinions. - Reports challenges with insurance for dental cleanings, related to the need for cleaning and maintenance of a dental prosthesis. Review of Systems - General: Denies current symptoms of anxiety or discomfort. - Skin: No specific concerns, though advised regarding a dermatology consultation. - Musculoskeletal: Denies joint or muscle pain. - Hematologic: Denies any recent bleeding or unexplained bruising. Physical Exam General: Well developed, well nourished, in no acute distress. Appears stated age. Head: Normocephalic, atraumatic. Eyes: Pupils are equal, round and reactive to light and accommodation. Conjunctivae are clear. Vision grossly normal. Ears: TMs clear AU, EACS WNL Mouth: obturator present Nose: Patent, without discharge. Neck: Supple, no adenopathy or thyromegaly. Breast: Edu on SBE. Patient has had breast augmentation. Lungs: Clear to auscultation bilaterally. No rales, rhonchi or wheeze noted. Good air flow in all slade. Heart: Regular rate and rhythm. No murmurs, click, rubs or gallops are noted. Abdomen: Bowel sounds present in all quadrants. The abdomen is soft, nontender, with no masses or organomegaly noted. No hernias are noted. : Deferred. Reviewed recommendations for routine DEPARTMENT ASSISTANT. Pulses: Peripheral pulses are equal and palpable bilaterally. Extremities: No clubbing, cyanosis nor edema is noted. Neurologic: Gait and station normal. Cranial Nerves 2-12 intact. Motor strength grossly symmetrical and intact. No sensory loss. Balance normal. Skin: No rashes, ulcers, or lesions noted. Turgor is good. Skin color is good. Hair and nails are without abnormalities. Patient has small tags on the neck, likely age-related. Psych: Normal eye contact, affect and mood appropriate, and normal interactions. Patient is alert and appropriate to context. Results - Labs (2022): Normal blood count, normal kidney and liver function, slightly elevated cholesterol. - Past biopies confirmed oral squamous cell carcinoma. Discussion Notes During our discussion, I reviewed with the patient the history and status of her oral squamous cell carcinoma treatment. This included her need for ongoing surveillance with [facility] [place] due to past incomplete excision and recurrence of cancer. I emphasized the importance of an oral follow-up. The patient is instructed to ensure her referral to [facility] is established since it had lapsed. We also discussed her difficulty with insurance coverage for her dental prosthesis, and a referral was placed for dental cleaning through [facility]. In terms of future preventive care, I advised on dermatological screening given her exposure, a routine eye examination, and pending questions about starting mammograms due to her history of breast augmentation and age. Recommendations for follow-up were given, focusing on eye care, oral health, and skin surveillance. Assessment and Plan 1. Oral squamous cell carcinoma: The patient will continue her annual follow-ups at [facility] for her history of oral squamous cell carcinoma. Previous recommendations for radiation were unnecessary due to patient age and advice from specialists. 2. Post-breast augmentation: Advised on mammogram screenings as the patient approaches the appropriate screening age of 40, considering her breast augmentation. 3. Palate surgery: A referral to [facility] in [place] was made for ongoing dental and prosthetic care, resolving insurance complexities surrounding her dental prosthesis and cleanings. 4. Declined screening labs today Patient Instructions - Contact [facility] for appointment scheduling once the referral is processed. - Schedule an annual eye exam at [facility]. - Arrange a dermatology appointment for a routine skin check. - Continue with routine health maintenance exams, including mammogram discussions next year. -RTO 1 year CPE sooner PRN Consent Patient was informed and verbally consented to the use of an ambient scribe for clinic note documentation during this visit. [facility] Medical History No pertinent past medical history Surgical History History of breast augmentation Family History Mother Bipolar 1 disorder Father No problems noted. 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 1. Little interest or pleasure in doing things: not at all 2. Feeling down, depressed, or hopeless: not at all 3. Trouble falling or staying asleep, or sleeping too much: not at all 4. Feeling tired or having little energy: not at all 5. Poor appetite or overeating: not at all 6. Feeling bad about yourself - or that you are a failure or have let yourself or your family down: not at all 7. Trouble concentrating on things, such as reading the newspaper or watching television: not at all 8. Moving or speaking so slowly that other people could have noticed. Or the opposite - being so fidgety or restless that you have been moving around a lot more than usual: not at all 9. Thoughts that you would be better off or of hurting yourself in some way: not at all Total score: 0 Depression Screening Interpretation: Negative Depression Screening Done: Yes 03389 - PHQ-9 Billing: Yes Source: Developed by Drs. Daniel Fox, Tena Mcconnell, Donnie Morris and colleagues, with an educational aleks from [employer]. Thrive Questionnaire Date Thrive assessed: 08/24/24 I am a: Patient What is your living situation today?: I have a steady place to live Within the past 12 months, did the food you bought not last and you didn't have the money to get more?: Never true Within the past 12 months, did you worry whether your food would run out before you got money to buy more?: Never true Do you have trouble paying for medicines?: No Do you have trouble getting transportation to medical appointments?: No Do you have trouble paying your heating and electricity bill?: No Do you have trouble taking care of your child, family member or friend?: No Do you have trouble with day-to-day activities such as bathing, preparing meals, shopping, managing finances, etc.?: No Are you currently unemployed and looking for a job?: No Are you interested in more education?: No Please select the resources that you would like help with: None Currently or been in a relationship where the following occur: No concerns reported THRIVE Score: 0 AUDIT C Alcohol Use Questionnaire (AUDIT-C) 1. How often do you have a drink containing alcohol?: Monthly or less 2. How many drinks containing alcohol do you have on a typical day when you are drinking?: 1 or 2 3. How often do you have six or more drinks on one occasion?: Never Total Score: 1 Score Reviewed/Action Taken: Yes VERÓNICA-7 AMB Questionnaire VERÓNICA-7 Date VERÓNICA - 7 assessed: 08/24/24 Feeling nervous, anxious, or on edge: 0 = Not at all Not being able to stop or control worryin = Not at all Worrying too much about different things: 0 = Not at all Trouble relaxin = Not at all Being so restless that it is hard to sit still: 0 = Not at all Becoming easily annoyed or irritable: 0 = Not at all Feeling afraid as if something awful might happen: 0 = Not at all Total VERÓNICA-7 score (0-4 normal; 5-9 mild; 10-14 moderate; 15-21 severe): 0 Source: Developed by Drs. Daniel Fox, Tena Mcconnell, Donnie Morris and colleagues, with an educational aleks from [employer]. VERÓNICA-7 Assessment Billing VERÓNICA-7 Assessment Tool: VERÓNICA-7 Assessment 83810 Physical exam (Primary Care) Vital Signs: Last Vital Signs Temp 98.1 F 08/24/24 11:35 Pulse 68 08/24/24 11:35 Resp 12 08/24/24 11:35 BP 98/68 08/24/24 11:35 Pulse Ox 97 08/24/24 11:35 Oxygen Delivery Method Room Air 08/24/24 11:35 BMI result Body Mass Index 28.4 Tobacco/Smoking Status: Tobacco use Status Tobacco use date assessed 08/24/24 08/24/24 11:37 Patient Tobacco Use Status Never used Tobacco 08/24/24 11:37 e-Cigarette/Vaping Use Never Used 08/24/24 11:37 PHQ-9: PHQ-9 Score PHQ-9: Total score 0 08/24/24 11:37 Depression Screening Interpretation: Negative Thrive Assessment: Date of Thrive Assessment Date Thrive assessed 08/24/24 08/24/24 11:37 Currently or been in a relationship where the following occur: No concerns reported Coding Level of Care Code Est Pt Prev Care 18-39y(96441) Diagnoses Encounter for general adult medical examination without abnormal findings Z00.00 Influenza vaccination declined by patient Z28.21 Tetanus, diphtheria, and acellular pertussis (Tdap) vaccination declined Z28.21 Squamous cell carcinoma of oral cavity C06.9 History of bilateral breast implants Z98.82 Blurred vision, bilateral H53.8 activity Y99.1 Skin cancer screening Z12.83 Additional Codes VERÓNICA-7 Assessment Billing - VERÓNICA-7 Assessment Tool: VERÓNICA-7 Assessment 14614 ([id number]) PHQ-9 - 79200 - PHQ-9 Billing: Yes ([id number]) Assessment & Plan Assessment & Plan (1) Encounter for general adult medical examination without abnormal findings: Code(s): Z00.00 - Encounter for general adult medical examination without abnormal findings (2) Influenza vaccination declined by patient: Code(s): Z28.21 - Immunization not carried out because of patient refusal Category: Medical (3) Tetanus, diphtheria, and acellular pertussis (Tdap) vaccination declined: Code(s): Z28.21 - Immunization not carried out because of patient refusal Category: Medical (4) Squamous cell carcinoma of oral cavity: Onset Date: ~2012 Code(s): C06.9 - Malignant neoplasm of mouth, unspecified Category: Medical (5) History of bilateral breast implants: Code(s): Z98.82 - Breast implant status Category: Medical (6) Blurred vision, bilateral: Code(s): H53.8 - Other visual disturbances Category: Medical (7) activity: Code(s): Y99.1 - activity Category: Medical (8) Skin cancer screening: Code(s): Z12.83 - Encounter for screening for malignant neoplasm of skin Category: Medical Plan . Orders: Referrals Ophthalmology Referral H53.8 - Other visual disturbances Oral Surgery Referal C06.9 - Malignant neoplasm of mouth, unspecified Dentistry Referral C06.9 - Malignant neoplasm of mouth, unspecified, Z98.890 - Other specified postprocedural states Dermatology Referral C06.9 - Malignant neoplasm of mouth, unspecified, Y99.1 - activity, Z12.83 - Encounter for screening for malignant neoplasm of skin Patient Instructions: Health screenings for women You should visit your health care provider from time to time, even if you are healthy. The purpose of these visits is to: Screen for medical issues Assess your risk for future medical problems Encourage a healthy lifestyle Update vaccinations and other preventive care services Help you get to know your provider in case of an illness Information Even if you feel fine, you should still see your provider for regular checkups. These visits can help you avoid problems in the future. For example, the only way to find out if you have high blood pressure is to have it checked regularly. High blood sugar and high cholesterol levels also may not have any symptoms in the early stages. A simple blood test can check for these conditions. There are specific times when you should see your provider or receive specific health screenings. The [place] Preventive Services Task Force publishes a list of recommended screenings. Below are screening guidelines for women ages 18 to 39. BLOOD PRESSURE SCREENING Your blood pressure should be checked at least once every 3 to 5 years if: Your blood pressure is in the normal range (top number less than 120 mm Hg and bottom number less than 80 mm Hg) You don't have risk factors for high blood pressure Ask your provider if you need your blood pressure checked more often if: The top number is 120 to 129 mm Hg or the bottom number is 70 to 79 mm Hg You have diabetes, heart disease, kidney problems, are overweight, or have certain other health conditions You have a first-degree relative with high blood pressure You are Black You had high blood pressure during a If the top number is 130 mm Hg or greater or the bottom number is 80 mm Hg or greater, this is considered stage 1 hypertension. Schedule an appointment with your provider to learn how you can reduce your blood pressure. Watch for blood pressure screenings in your area. Ask your provider if you can stop in to have your blood pressure checked. BREAST CANCER SCREENING Experts do not agree about the benefits of breast self-exams in finding breast cancer or saving lives. Talk to your provider about what is best for you. A screening mammogram is not recommended for most women under age 40. Your provider may discuss and recommend mammograms, MRI scans, or ultrasounds if you have an increased risk for breast cancer, such as: A mother or sister who had breast cancer at a young age (most often starting screening earlier than the age the close relative was diagnosed) You carry a high-risk genetic marker CERVICAL CANCER SCREENING Cervical cancer screening should start at age 21 years unless your provider advises otherwise. After the first test: Women ages 21 through 29 should have a Pap test every 3 years. Exoprts do not agree on whether HPV testing is recommended for this age group. Women ages 30 through 65 should be screened with either a Pap test every 3 years or the HPV test every 5 years or both tests every 5 years (called cotesting ). Women who have been treated for precancer (cervical dysplasia) should continue to have Pap tests for 20 years after treatment or until age 65, whichever is longer. If you have had your uterus and cervix removed (total hysterectomy), and you have not been diagnosed with cervical cancer or precancer (high grade cervical neoplasia), you do not need cervical cancer screening. CHOLESTEROL SCREENING Cholesterol screening should begin at: Age 45 for women with no known risk factors for coronary heart disease Age 20 for women with known risk factors for coronary heart disease Repeat cholesterol screening should take place: Every 5 years for women with normal cholesterol levels More often if changes occur in lifestyle (including weight gain and diet) More often if you have diabetes, heart disease, kidney problems, or certain other conditions DIABETES SCREENING You should be screened for diabetes starting at age 35 and then repeated every 3 years if you have no risk factors for diabetes. Screening may need to start earlier and be repeated more often if you have other risk factors for diabetes, such as: You have a first degree relative with diabetes. You are overweight or have obesity. You have high blood pressure, prediabetes, or a history of heart disease. Screening for diabetes should be done if you are planning to become and you are overweight and have other risk factors such as high blood pressure. DENTAL EXAM Go to the dentist once or twice every year for an exam and cleaning. Your dentist will evaluate if you need more frequent visits. EYE EXAM Have an eye exam every 5 to 10 years before age 40. If you have vision problems, have an eye exam every 2 years or more often if recommended by your provider. You should have an eye exam that includes an examination of your retina (back of your eye) at least every year if you have diabetes. IMMUNIZATIONS Commonly needed vaccines include: Flu shot: get one every year. COVID-19 vaccine: ask your provider what is best for you. Tetanus-diphtheria and acellular pertussis (Tdap) vaccine: have one at or after age 19 as one of your tetanus-diphtheria vaccines if you did not receive it as an adolescent. Tetanus-diphtheria: have a booster (or Tdap) every 10 years. Varicella vaccine: receive 2 doses if you never had chickenpox or the varicella vaccine. Hepatitis B vaccine: receive 2, 3, or 4 doses, depending on your exact circumstances. Measles, mumps, and rubella (MMR) vaccine: receive 1 to 2 doses if you are not already immune to MMR. Your provider can tell you if you are immune. Ask your provider about the human papillomavirus (HPV) vaccine if: You have not received the HPV vaccine in the past You have not completed the full vaccine series (you should catch up on this shot) Ask your provider if you should receive other immunizations if you have certain health problems that increase your risk for some diseases such as pneumonia. INFECTIOUS DISEASE SCREENING Women who are sexually active should be screened for chlamydia and gonorrhea up until age 25. Women 25 years and older should be screened for chlamydia and gonorrhea if at high risk. Screening for hepatitis C: All adults ages 18 to 79 should get a one-time test for hepatitis C. people should be screened at every . Screening for human immunodeficiency virus (HIV): All people ages 15 to 65 should get a one-time test for HIV. Depending on your lifestyle and medical history, you may also need to be screened for infections such as syphilis and HIV, as well as other infections. PHYSICAL EXAM All adults should visit their provider from time to time, even if they are healthy. The purpose of these visits is to: Screen for disease Assess your risk of future medical problems Encourage a healthy lifestyle Update your vaccinations and other preventive care services Maintain a relationship with a provider in case of an illness Your height, weight, and BMI should be checked at every exam. During your exam, your provider may ask you about: Depression and anxiety Diet and exercise Alcohol and tobacco use Safety issues, such as using seat belts, smoke detectors, and intimate partner violence Your medicines and risk for interactions SKIN SELF-EXAM Your provider may check your skin for signs of skin cancer, especially if you're at high risk, such as if you: Have had skin cancer before Have close relatives with skin cancer Have a weakened immune system OTHER SCREENING Talk with your provider about colon cancer screening if you have a strong family history of colon cancer or polyps, or if you have had inflammatory bowel disease or polyps yourself. Routine bone density screening of women under 40 is not recommended.
[2024-08-24 11:35] VITALS: BP 98/68; PULSE 68; RESP 12; TEMP 36.7; O2SAT 97; BMI 28.4
== END 2024-08-24 12:03 | disposition home or self-care (01) ==
LOC: HO.HMCFM 11:29
PROVIDERS: PCP Family Medicine; Visit Provider Nurse Practitioner Family
DX: Z00.00 Encounter for general adult medical examination without abnormal findings (principal); Z28.21 Immunization not carried out because of patient refusal; C06.9 Malignant neoplasm of mouth, unspecified; Z98.82 Breast implant status; H53.8 Other visual disturbances; Y99.1 Military activity; Z12.83 Encounter for screening for malignant neoplasm of skin

== ENCOUNTER → 2024-08-24 11:28 | Outpatient (BNVA) | payer OTHER, SELFPAY | PROVIDERS: PCP Family Medicine; Visit Provider Nurse Practitioner Family | DX: Z00.00 Encounter for general adult medical examination without abnormal findings (principal); C06.9 Malignant neoplasm of mouth, unspecified; H53.8 Other visual disturbances; Z98.82 Breast implant status; Y99.1 Military activity | CPT/HCPCS: 96127 ==

== ENCOUNTER 2024-11-28 09:24 | Outpatient (REF) | payer OTHER, SELFPAY | END 2024-11-28 09:25 | disposition home or self-care (01) | LOC: HO.LAB 09:24 | PROVIDERS: PCP Family Medicine | DX: R31.0 Gross hematuria (principal); N39.0 Urinary tract infection, site not specified | CPT/HCPCS: 81003; 87086; 87088; 87186; 99212 ==

== ENCOUNTER 2024-11-28 09:24 | Outpatient (AMB) | payer OTHER, SELFPAY ==
--- NOTE | 2024-11-28 09:30 | AM.OFFWIN_ITS ---
Intake Vital Signs 11/28/24 09:31 Height 5 ft 6 in Weight 162 lb 2 oz BMI 26.2 BP 104/60 Blood Pressure Location Rt brachial Position Sitting Pulse 66 Pulse Source Pulse Oximeter Temp 99.2 F Temp Source Oral Pulse Oximetry (%) 98 Oxygen Delivery Method Room Air Intake Visit Reasons: EP-blood in urine & lower back pain Patient Tobacco Use Status: Never used Tobacco Pluck Separator Required: No Allergies No Known Allergies Allergy (Verified 11/28/24 09:35) HPI HPI Comments History of Present Illness Details History of Present Illness - The patient is a 39-year-old female pr esenting with lower back pain and hematuria. - The patient reports the onset of lower back pain, possibly due to a workout- related injury. - Hematuria began on Thursday, accompani ed by mild discomfort but no severe burning sensation. - On Thursday, the patient experienced per sistent nausea and vomiting, which continued into the following day. - The patient's mother has a history of nephrolithiasis, suggesting a possible familial predisposition. - The patient has not experienced nephro lithiasis previously. - The patient's last menstrual period on the 16th of the month. - She states that the pain in mainly on the right. - She denies fever, chills, CP, SOB, vag inal discharge or bleeding. Physical Exam General: Cooperative, healthy appearing, comfortable, no acute distress and well developed Orientation: Patient oriented x3 Respiratory: Normal respiratory effort and able to speak in complete sentences. Clear to auscultation bilaterally Cardiovascular: Regular rate and rhythm. Normal S1 and S2 GI: Normal to inspection. Soft to palpation and nontender, non-distended. No rebound tenderness. No guarding noted. Negative Patterson's. Positive CVA tenderness noted on the right. Skin: No rashes or lesions noted Patient was informed and verbally consented to the use of an ambient scribe for clinic note documentation during this visit. [facility] Medical History (Updated 08/24/24 @ 11:55 by SCOT Beard) No pertinent past medical history Surgical History (Updated 08/24/24 @ 11:48 by SCOT Beard) H/O palate surgery History of breast augmentation Family History Mother Bipolar 1 disorder Father No problems noted. 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 [employer] Cognitive needs: No Hearing needs: No Vision needs: No Female Reproductive History Menstrual Age of Menarche: 11 Review of Systems Const All systems reviewed & are unremarkable except as noted in HPI and below Physical Exam Vital Signs: Last Vital Signs Temp 99.2 F 11/28/24 09:31 Pulse 66 11/28/24 09:31 BP 104/60 11/28/24 09:31 Pulse Ox 98 11/28/24 09:31 Oxygen Delivery Method Room Air 11/28/24 09:31 BMI result Body Mass Index 26.2 Results AMB Urinalysis, Automated UA Leukoctes 500 Aubrie/uL Last Edit by Rhianna See CMA on 11/28/24 09:48 UA Nitrite Negative Last Edit by Rhianna See CMA on 11/28/24 09:48 UA Urobilinogen 0.2 mg/dL Last Edit by Rhianna See CMA on 11/28/24 09:48 UA Protein 100 mg/dL Last Edit by Rhianna See CMA on 11/28/24 09:48 UA pH 6.0 Last Edit by Rhianna See CMA on 11/28/24 09:48 UA Blood 200 Marv/uL Last Edit by Rhianna See CMA on 11/28/24 09:48 UA Specific [place] 1.020 Last Edit by Rhianna See CMA on 11/28/24 09:48 UA Ketone Positive Last Edit by Rhianna See CMA on 11/28/24 09:48 UA Bilirubin 0 mg/dL Last Edit by Rhianna See CMA on 11/28/24 09:48 UA Glucose 0 mg/dL Last Edit by Rhianna See CMA on 11/28/24 09:48 Results Reviewed Results Reviewed: Laboratory Last Values Urine pH (Auto) 6.0 11/28/24 09:34 Specific [place] (Auto) 1.020 11/28/24 09:34 Urine Protein (Auto) 100 mg/dL 11/28/24 09:34 Glucose (UA)(Auto) 0 mg/dL 11/28/24 09:34 Urine Ketones (Auto) Positive 11/28/24 09:34 Urine Blood (Auto) 200 Marv/uL 11/28/24 09:34 Urine Nitrite (Auto) Negative 11/28/24 09:34 Urine Bilirubin (Auto) 0 mg/dL 11/28/24 09:34 Urine Urobilinogen (Auto) 0.2 mg/dL 11/28/24 09:34 Leukocyte Esterase (Auto) 500 Aubrie/uL 11/28/24 09:34 Assessment & Plan Assessment & Plan (1) Hematuria: Code(s): R31.9 - Hematuria, unspecified Qualifiers: Hematuria type: gross Qualified Code(s): R31.0 - Gross hematuria Plan Most likely stone vs UTI UA in the office- 3+ leuko, 2+ protein, 3+blood, +ketones Plan - Will order a UC - Drink lots of fluids - Zofran as needed for nausea - Tylenol or Motrin as needed - Flomax daily - Consideration of nephrolithiasis as a differential diagnosis due to symptoms of hematuria and back pain. - Will order an ultrasound to confirm the presence of a kidney stone. - Recommendation for follow-up with a primary care provider or urologist if symptoms persist or worsen. Orders: Orders AMB Urinalysis Automated Today Almita Underwood NP Z13.9 - Encounter for screening, unspecified US renal BI Today Carmenza Kinney PA-C R31.9 - Hematuria, unspecified Urine Culture Today Carmenza Kinney PA-C N39.0 - Urinary tract infection, site not specified Medications: New ondansetron 4 mg PO Q8H PRN 10 tabs 0RF nausea and vomiting Carmenza Kinney PA-C tamsulosin (Flomax) 0.4 mg PO DAILY 7 caps 0RF Carmenza Kinney PA-C Coding Level of Care Code Est Pt Level 4 (69011) Diagnoses Gross hematuria R31.0 Hematuria type: gross
[2024-11-28 09:31] VITALS: BP 104/60; PULSE 66; TEMP 37.3; O2SAT 98; BMI 26.2
--- OUTSIDE RECORDS SUMMARY | 2024-11-28 10:13 | XMS_ITS | Continuity of Care Document ---
Author Name [facility] Organization [facility] Care Team Providers Care Strategic Planning Specialist Name Role Phone [facility] Unavailable Unavailable Problems Combined list of problems from Department of Defense and Veterans Affairs facilities. It does not include entries that were removed or entered in error. Problem Status Onset Date Problem Type Date of Resolution Comments Source CONSTIPATION FUNCTIONAL Inactive 8 Condition DoD NONORGANIC SLEEP DISORDERS Inactive Condition DoD CONJUNCTIVITIS ACUTE LEFT EYE Inactive Condition early conjunctivitis erythomycin ointment. apply to left eyelid TID DoD Immunizations Combined list of available immunizations from the Department of Defense and Veterans Affairs facilities. Immunization Series Date Given Administered By Site Reaction Lot Number CVX Code Drug Technology Specialist Status Comments Source influenza virus vaccine, inactivated 2023 EDDIE Carney anyi, left (delt oid) [id number] [employer], Octro complet ed influenza virus vaccine, inactivat ed 04/05/24 Given 8203R-1 04 MDG tetanus, diphtheria, acellular pertu is 2023 OLIMPIA Carney anyi, left (delt oid) [id number] 115 sanofi pasteur complet ed tetanus, diphtheri a, acellular pertussis 09/11/23 Given 8203R-1 04 MDG influenza, injectable, quadrivalent 2020 [id number] 158 GlaxoSmithKli ne complet ed influenza , injectabl e, quadrival ent 03/23/21 Given Ambulat ory Pharmac y influenza, injectable, quadrivalent, contains preservative 1 2020 [id number] 158 [facility] (SKB) complet ed influenza , injectabl e, quadrival ent, contains preservat chirag DoD COVID Vaccine Moderna 2020 [id number] complet ed COVID Vaccine Moderna 09/21/20 Given Ambulat ory Pharmac y SARS-COV-2 (COVID-19) vaccine, mRNA, spike protein, LNP, preservative free, 100 mcg or 50 mcg dose 2 2020 [id number] 207 Moderna P[employer] (MOD) complet ed SARS-COV- 2 (COVID-19 ) vaccine, mRNA, spike protein, LNP, preservat chirag free, 100 mcg or 50 mcg dose DoD COVID Vaccine Moderna 2020 [id number] complet ed COVID Vaccine Moderna 08/19/20 Given Ambulat ory Pharmac y SARS-COV-2 (COVID-19) vaccine, mRNA, spike protein, LNP, preservative free, 100 mcg or 50 mcg dose 1 2020 [id number] 207 Moderna [employer]ino[employer] Inc. (MOD) complet ed SARS-COV- 2 (COVID-19 ) vaccine, mRNA, spike protein, LNP, preservat chirag free, 100 mcg or 50 mcg dose DoD influenza virus vaccine, inactivated 2019 [id number] Seqirus complet ed influenza virus vaccine, inactivat ed 03/22/20 Given Ambulat ory Pharmac y Influenza, injectable, Madin [place] Canine Kidney, quadrivalent with preservative 1 2019 [id number] 186 Seqirus (SEQ) comple t ed Influenza , injectabl e, Madin Radha Canine Kidney, quadrival ent with preservat chirag DoD influenza, injectable, quadrivalent- pf 2018 [id number] 150 Seqirus complet ed influenza , injectabl e, quadrival ent-pf 03/12/19 Given Ambulat ory Pharmac y Influenza, injectable, quadrivalent, preservative free 14 2018 [id number] 150 Seqirus (SEQ) complet ed Influenza , injectabl e, quadrival ent, preservat chirag free DoD influenza, injectable, quadrivalent 2017 [id number] Seqirus complet ed influenza , injectabl e, quadrival ent 04/08/18 Given Ambulat ory Pharmac y influenza, injectable, quadrivalent, contains preservative 13 2017 [id number] 158 Seqirus (SEQ) comple t ed influenza , injectabl e, quadrival ent, contains preservat chirag DoD influenza, seasonal, injectable 2016 [id number] 141 complet ed influenza , seasonal, injectabl e 03/02/17 Given Ambulat ory Pharmac y Influenza, seasonal, injectable 1 2016 141 Transcribed (TRS) complet ed Influenza , seasonal, injectabl e DoD influenza, seasonal, injectable-pf 2015 [id number] 140 Seqirus complet ed influenza , seasonal, injectabl e-pf 03/22/16 Given Ambulat ory Pharmac y Influenza, seasonal, injectable, preservative free 11 2015 [id number] 140 Seqirus (SEQ) comple t ed Influenza , seasonal, injectabl e, preservat chirag free DoD influenza, live, intranasal,qu adrivalent 2012 [id number] 149 S[employer] Inc comple t ed influenza , live, intranasa l,quadriv alent 05/14/13 Given Ambulat ory Pharmac y tetanus, diphtheria, acellular pertu is 2012 [id number] 115 sanofi pasteur complet ed tetanus, diphtheri a, acellular pertussis 05/14/13 Given Ambulat ory Pharmac y tetanus toxoid, reduced diphtheria toxoid, and acellular pertu is vaccine, adsorbed 0 2012 [id number] 115 Sanofi Pasteur (PMC) complet ed tetanus toxoid, reduced diphtheri a toxoid, and acellular pertussis vaccine, adsorbed DoD influenza, live, intranasal, quadrivalent 11 2012 [id number] 149 Likez[employer] Inc. (MED) complet ed influenza , live, [...] chirag free DoD influenza virus vaccine,split 2009 [id number] 15 sanofi pasteur complet ed influenza virus vaccine,s plit 05/11/10 Given Ambulat ory Pharmac y influenza virus vaccine, split virus (incl. purified surface antigen)-reti red CODE 1 2009 [id number] 15 Sanofi Pasteur ([facility]) complet ed influenza virus vaccine, split virus (incl. purified surface antigen)- retired CODE DoD Novel influenza-H1N 1-09, injectable 2009 [id number] 127 Novartis Pharmaceutica ls complet ed Novel influenza -[id number], injectabl e 07/15/09 Given Ambulat ory Pharmac y Novel influenza-H1N 1-09, injectable 1 2009 [id number] 1 127 Novartis Pharmaceutica l Boris. (NOV) complet ed Novel influenza -[id number], injectabl e DoD influenza virus vaccine, live 2008 [id number] 111 [employer] comple t ed influenza virus vaccine, live 04/15/09 Given Ambulat ory Pharmac y influenza virus vaccine, live, attenuated, for intranasal use 1 2008 [id number] 111 MedImmune, Inc. (MED) complet ed influenza virus vaccine, live, attenuate d, for intranasa l use DoD tuberculin purified protein derivative 2008 [id number] 96 sanofi pasteur complet ed tuberculi n purified protein derivativ e 07/15/08 Given Ambulat ory Pharmac y tuberculin purified protein derivative 2007 [id number] 96 sanofi pasteur complet ed tuberculi n purified protein derivativ e 04/08/08 Given Ambulat ory Pharmac y influenza virus vaccine, live 2007 [id number] 111 [employer] comple t ed influenza virus vaccine, live 04/08/08 Given Ambulat ory Pharmac y influenza virus vaccine, live, attenuated, for intranasal use 1 2007 [id number] 111 MedImmune, Inc. (MED) complet ed influenza virus vaccine, live, attenuate d, for intranasa l use DoD anthrax vaccine 2007 [id number] Emergent [employer] complet ed anthrax vaccine 12/03/07 Given Ambulat ory Pharmac y anthrax vaccine 4 2007 [id number] [employer] [place] ([facility]) complet ed anthrax vaccine DoD influenza virus vaccine, live 2006 [id number] 111 App[employer] Inc comple t ed influenza virus vaccine, live 05/09/07 Given Ambulat ory Pharmac y anthrax vaccine 2006 [id number] [employer] complet ed anthrax vaccine 05/09/07 Given Ambulat ory Pharmac y anthrax vaccine 3 2006 [id number] 24 [employer] [place] ([facility]) complet ed anthrax vaccine DoD influenza virus vaccine, live, attenuated, for intranasal use 1 2006 [id number] 111 [employer].fr. (MED) complet ed influenza virus vaccine, live, attenuate d, for intranasa l use DoD anthrax vaccine 2006 [id number] [employer] complet ed anthrax vaccine 04/25/07 Given Ambulat ory Pharmac y anthrax vaccine 2 2006 [id number] 24 [employer] [place] ([facility]) complet ed anthrax vaccine DoD anthrax vaccine 2006 [id number] [employer] complet ed anthrax vaccine 04/10/07 Given Ambulat ory Pharmac y typhoid Vi capsular polysaccharid e vac 2006 [id number] 101 sanofi pasteur complet ed typhoid Vi capsular polysacch aride vac 04/10/07 Given Ambulat ory Pharmac y anthrax vaccine 1 2006 [id number] 24 [employer] [place] ([facility]) complet ed anthrax vaccine DoD typhoid Vi capsular polysaccharid e vaccine 1 2006 [id number] 101 Sanofi Pasteur (PMC) complet ed typhoid Vi capsular polysacch aride vaccine DoD influenza virus vaccine,split 2005 [id number] 15 sanofi pasteur complet ed influenza virus vaccine,s plit 04/26/06 Given Ambulat ory Pharmac y influenza virus vaccine, split virus (incl. purified surface antigen)-reti red CODE 1 2005 [id number] 15 Sanofi Pasteur (PMC) complet ed influenza virus vaccine, split virus (incl. purified surface antigen)- retired CODE DoD vaccinia (smallpox) vaccine 2005 [id number] [employer] complet ed vaccinia (smallpox ) vaccine 08/13/05 Given Ambulat ory Pharmac y vaccinia (smallpox) vaccine 1 2005 [id number] 75 [facility] ([facility]) complet ed vaccinia (smallpox ) vaccine DoD influenza virus vaccine,split 2005 [id number] 15 sanofi pasteur complet ed influenza virus vaccine,s plit 06/15/05 Given Ambulat ory Pharmac y influenza virus vaccine, split virus (incl. purified surface antigen)-reti red CODE 1 2005 [id number] 15 Sanofi Pasteur ([facility]) complet ed influenza virus vaccine, split virus [...] vaccine 0 2004 [id number] Sanofi Pasteur ([facility]) complet ed typhoid Vi capsular polysacch aride vaccine DoD influenza virus vaccine, live 2004 [id number] 111 [employer] comple t ed influenza virus vaccine, live 06/15/04 Given Ambulat ory Pharmac y influenza virus vaccine, live, attenuated, for intranasal use 0 2004 [id number] 111 Like[employer] Inc. (MED) complet ed influenza virus vaccine, [...] Pharmac y hepatitis A adult vaccine 2003 [id number] 52 GlaxoSmithKli ne complet ed hepatitis [...] hepatitis A vaccine, adult dosage 1 2003 [id number] 52 [employer] (SKB) complet ed hepatitis A vaccine, adult dosage DoD tuberculin purified protein derivative 2003 [id number] 96 sanofi pasteur complet ed tuberculi n purified protein derivativ e 11/24/03 Given Ambulat ory Pharmac y meningococcal polysaccharid e (MPSV4) 2003 [id number] 32 sanofi pasteur complet ed meningoco ccal polysacch aride (MPSV4) 11/24/03 Given Ambulat ory Pharmac y tetanus-dipht h toxoids (Td) adult/adol 2003 [id number] 09 sanofi pasteur complet ed tetanus-d iphth toxoids (Td) adult/ado l 11/24/03 Given Ambulat ory Pharmac y poliovirus vaccine, inactivated 2003 [id number] 10 sanofi pasteur complet ed polioviru s vaccine, inactivat ed 11/24/03 Given Ambulat ory Pharmac y influenza virus vaccine, whole virus 2003 [id number] 16 Novartis Pharmaceutica ls complet ed influenza virus vaccine, whole virus 11/24/03 Given Ambulat ory Pharmac y tetanus and diphtheria toxoids, adsorbed, preservative free, for adult use (2 Lf of tetanus toxoid and 2 Lf of diphtheria toxoid) 0 2003 [id number] 09 Sanofi Pasteur (PMC) complet ed tetanus and diphtheri a toxoids, adsorbed, preservat chirag free, for adult use (2 Lf of tetanus toxoid and 2 Lf of diphtheri a toxoid) DoD poliovirus vaccine, inactivated 0 2003 [id number] 10 Sanofi Pasteur (PMC) complet ed polioviru s vaccine, inactivat ed DoD influenza virus vaccine, whole virus 0 2003 [id number] 16 [employer] Pharm[employer] ls (PWJ) complet ed influenza virus vaccine, whole virus DoD meningococcal polysaccharid e vaccine (MPSV4) 0 2003 [id number] 32 Sanofi Pasteur (PMC) complet ed meningoco [...] Prevention' s HIV diagnostic algorithm. Refer to [facility] Lab Guide for additional information : [email or web address] x Testing performed by [...] DC Date Status Disposition Source Deni Gupta [facility] OUTPATIENT [id number] STEPHAN WRIGHT I 07/13 Released w/o Limitations Deni NiniJavier francisco j [facility] OUTPATIENT [id number] 09/13 Released w/o Limitations [facility] OUTPATIENT [id number] 12/29 Released w/o Limitations [facility] OUTPATIENT [id number] 01/16 Released w/o Limitations [facility] [place] [address](AFN G [address] S[address]-FM) OUTPATIENT [id number] MARGIE VALENZUELA 09/12 Released w/o Limitations [facility] [place] [address](A FNG [address] S[address]-FM) [facility] [place] [address](AFN G [address] Med Sq-FM) OUTPATIENT [id number] Notes Entered by: SEBAS DOMINGUEZ 12 Feb 2018 1456 ------- ------- ------- ------- -- SEBAS LESTER 02/12 Released with Work/Duty Limitations [facility] [place] [address](A FNG [address] Med Sq-FM) [facility] [place] [address](AFN G [address] Med Sq-FM) TELE CONSULT [id number] SEBSA DOMINGUEZ 06/20 [facility] [place] [address](A FNG 104 Med Sq-FM) 8203R-104 MDG Mass Vaccine [id number] 04/05 8203R-1 04 MDG Procedures Combined list of: 1) Procedures from Department of Veterans Affairs facilities going back up to thelast 18 months, not all VA non-surgical procedures [...] with friends, none for over one year MAYNARD This section is an empty social history section. [facility] Assessment and Plan Combined list of future care activities from Department of Defense and Veterans Affairs facilities (e.g., assessment and plan notes, appointments, orders, and referrals). Additional future care activities may be listed in the Plan of Care section. Result Assessment and Plan Date Source Assessment and Plan No data available for this section 11/28/2024 Ambulatory Pharmacy Functional Status Combined list of recent functional and cognitive assessments recorded at Department of Defense and Veterans Affairs (VA).VA Functional [place] Measurement (FIM) Scale: 1 = Total Assistance (Subject = 0% +), 2 = Maximal Assistance (Subject = 25% +), 3 = Moderate Assistance (Subject = 50% +), 4 = Minimal Assistance (Subject = 75% +), 5 = Supervision, 6 = Modified [place] (Device), 7 = Complete [place] (Timely, Safely). Assessment Date/Time Source Assessment Type Assessment Skill Assessment Score Assessment Details No data available for this section
== END 2024-11-28 10:26 | disposition home or self-care (01) ==
PROVIDERS: PCP Family Medicine; Visit Provider Physician Assistant Medical
DX: R31.0 Gross hematuria (principal)

== ENCOUNTER 2024-12-16 10:04 | Outpatient (REF) | payer OTHER, SELFPAY ==
--- NOTE | ~2024-12-16 | US_ITS ---
CLINICAL HISTORY: R31.9 - Hematuria, unspecified US renal with Color Doppler Comparison: None Findings: Right kidney normal size and echotexture, 11.8 cm length. No hydronephrosis calculus or mass. Normal color flow. Left kidney normal size and echotexture, 12.2 cm length. No hydronephrosis calculus or mass. Normal color flow. Impression: 1. Normal renal ultrasound This document has been electronically signed by: Jac Olvera MD on 12/16/2024 19:09:08
== END 2024-12-16 10:05 | disposition home or self-care (01) ==
LOC: HO.US 10:04
PROVIDERS: PCP Family Medicine; Visit Provider Physician Assistant Medical
DX: R31.9 Hematuria, unspecified (principal)
CPT/HCPCS: 76775

== ENCOUNTER → 2024-12-16 10:06 | Outpatient (BNV) | payer OTHER, SELFPAY | PROVIDERS: PCP Family Medicine; Visit Provider Radiology Diagnostic Radiology | DX: R31.9 Hematuria, unspecified (principal) | CPT/HCPCS: 76775 ==

== ENCOUNTER 2025-01-23 09:30 | Outpatient (AMB) | payer OTHER, SELFPAY ==
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
[2025-01-23 09:36] VITALS: BP 122/70; PULSE 76; RESP 12; TEMP 36.2; O2SAT 99; BMI 25.4
--- OUTSIDE RECORDS SUMMARY | 2025-01-23 10:02 | XMS_ITS | Continuity of Care Document ---
Author Name [facility] Organization 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 Comments Source influenza virus vaccine, inactivated 2023 EDDIE Carney anyi, left (delt oid) [id number] [employer], [place] complet ed influenza virus vaccine, inactivat ed 04/05/24 Given 8203R-1 04 MDG tetanus, diphtheria, acellular pertu is 2023 OLIMPIA Carney anyi, left (delt oid) [id number] 115 sanofi pasteur complet ed tetanus, diphtheri a, acellular pertussis 09/11/23 Given 8203R-1 04 MDG influenza, injectable, quadrivalent 2020 [id number] 158 GlaxoSmithKli ne complet ed influenza , injectabl e, quadrival ent 03/23/21 Given Ambulat ory Pharmac y influenza, injectable, quadrivalent, contains preservative 1 2020 [id number] 158 [facility] ([facility]) complet ed influenza , injectabl e, quadrival ent, contains preservat chirag DoD COVID Vaccine Moderna 2020 [id number] complet ed COVID Vaccine Moderna 09/21/20 Given Ambulat ory Pharmac y SARS-COV-2 (COVID-19) vaccine, mRNA, spike protein, LNP, preservative free, 100 mcg or 50 mcg dose 2 2020 [id number] 207 Moderna [employer] (MOD) complet ed SARS-COV- 2 (COVID-19 ) vaccine, mRNA, spike protein, LNP, preservat chirag free, 100 mcg or 50 mcg dose DoD COVID Vaccine Moderna 2020 [id number] complet ed COVID Vaccine Moderna 08/19/20 Given Ambulat ory Pharmac y SARS-COV-2 (COVID-19) vaccine, mRNA, spike protein, LNP, preservative free, 100 mcg or 50 mcg dose 1 2020 [id number] 207 Moderna [employer] (MOD) complet ed SARS-COV- 2 (COVID-19 ) vaccine, mRNA, spike protein, LNP, preservat chirag free, 100 mcg or 50 mcg dose DoD influenza virus vaccine, inactivated 2019 [id number] Se[employer] complet ed influenza virus vaccine, inactivat ed 03/22/20 Given Ambulat ory Pharmac y Influenza, injectable, Madin Radha Canine Kidney, quadrivalent with preservative 1 2019 [id number] Seqirus (SEQ) comple t ed Influenza , injectabl e, Madin [place] Canine Kidney, quadrival ent with preservat chirag DoD influenza, injectable, quadrivalent- pf 2018 [id number] 150 Seqirus complet ed influenza , injectabl e, quadrival ent-pf 03/12/19 Given Ambulat ory Pharmac y Influenza, injectable, quadrivalent, preservative free 14 2018 [id number] 150 Se[employer]irus (SEQ) complet ed Influenza , injectabl e, quadrival ent, preservat chirag free DoD influenza, injectable, quadrivalent 2017 [id number] 158 Se[employer] complet ed influenza , injectabl e, quadrival ent 04/08/18 Given Ambulat ory Pharmac y influenza, injectable, quadrivalent, contains preservative 13 2017 [id number] 158 Se[employer]irus (SEQ) comple t ed influenza , injectabl e, quadrival ent, contains preservat chirag DoD influenza, seasonal, injectable 2016 [id number] 141 complet ed influenza , seasonal, injectabl e 03/02/17 Given Ambulat ory Pharmac y Influenza, seasonal, injectable 1 2016 141 Transcribed (TRS) complet ed Influenza , seasonal, injectabl e DoD influenza, seasonal, injectable-pf 2015 [id number] 140 Se[employer]irus complet ed influenza , seasonal, injectabl e-pf 03/22/16 Given Ambulat ory Pharmac y Influenza, seasonal, injectable, preservative free 11 2015 [id number] 140 Seqirus (SEQ) comple t ed Influenza , seasonal, injectabl e, preservat chirag free DoD influenza, live, intranasal,qu adrivalent 2012 [id number] 149 [employer] comple t ed influenza , live, intranasa l,quadriv alent 05/14/13 Given Ambulat ory Pharmac y tetanus, diphtheria, acellular pertu is 2012 [id number] 115 sanofi pasteur complet ed tetanus, diphtheri a, acellular pertussis 05/14/13 Given Ambulat ory Pharmac y tetanus toxoid, reduced diphtheria toxoid, and acellular pertu is vaccine, adsorbed 0 2012 [id number] 115 Sanofi Pasteur (PMC) complet ed tetanus toxoid, reduced diphtheri a toxoid, and acellular pertussis vaccine, adsorbed DoD influenza, live, intranasal, quadrivalent 11 2012 [id number] 149 [employer] Inc. (MED) complet ed influenza , live, [...] chirag free DoD influenza virus vaccine,split 2009 [id number] 15 sanofi pasteur complet ed influenza virus vaccine,s plit 05/11/10 Given Ambulat ory Pharmac y influenza virus vaccine, split virus (incl. purified surface antigen)-reti red CODE 1 2009 [id number] 15 Sanofi Pasteur ([facility]) complet ed influenza virus vaccine, split virus (incl. purified surface antigen)- retired CODE DoD Novel influenza-H1N 1-09, injectable 2009 [id number] 1 127 Novartis Pharmaceutica ls complet ed Novel influenza -[id number], injectabl e 07/15/09 Given Ambulat ory Pharmac y Novel influenza-H1N 1-09, injectable 1 2009 [id number] 1 127 Novartis Pharmaceutica l Boris. (NOV) complet ed Novel influenza -R5B1-11, injectabl e DoD influenza virus vaccine, live 2008 [id number] 111 [employer]e Inc comple t ed influenza virus vaccine, live 04/15/09 Given Ambulat ory Pharmac y influenza virus vaccine, live, attenuated, for intranasal use 1 2008 [id number] 111 MedImmune, Inc. (MED) complet ed influenza virus vaccine, live, attenuate d, for intranasa l use DoD tuberculin purified protein derivative 2008 [id number] 96 sanofi pasteur complet ed tuberculi n purified protein derivativ e 07/15/08 Given Ambulat ory Pharmac y tuberculin purified protein derivative 2007 [id number] 96 sanofi pasteur complet ed tuberculi n purified protein derivativ e 04/08/08 Given Ambulat ory Pharmac y influenza virus vaccine, live 2007 [id number] 111 [employer] Inc comple t ed influenza virus vaccine, live 04/08/08 Given Ambulat ory Pharmac y influenza virus vaccine, live, attenuated, for intranasal use 1 2007 [id number] 111 MedImmune, Inc. (MED) complet ed influenza virus vaccine, live, attenuate d, for intranasa l use DoD anthrax vaccine 2007 [id number] 24 Emergent [employer] complet ed anthrax vaccine 12/03/07 Given Ambulat ory Pharmac y anthrax vaccine 4 2007 [id number] [employer] [place] ([facility]) complet ed anthrax vaccine DoD influenza virus vaccine, live 2006 [id number] 111 [email or web address] comple t ed influenza virus vaccine, live 05/09/07 Given Ambulat ory Pharmac y anthrax vaccine 2006 [id number] 24 [employer] complet ed anthrax vaccine 05/09/07 Given Ambulat ory Pharmac y anthrax vaccine 3 2006 [id number] 24 [employer] [place] ([facility]) complet ed anthrax vaccine DoD influenza virus vaccine, live, attenuated, for intranasal use 1 2006 [id number] 111 [employer]. (MED) complet ed influenza virus vaccine, live, attenuate d, for intranasa l use DoD anthrax vaccine 2006 [id number] 24 [employer] complet ed anthrax vaccine 04/25/07 Given Ambulat ory Pharmac y anthrax vaccine 2 2006 [id number] 24 [employer] [place] ([facility]) complet ed anthrax vaccine DoD anthrax vaccine 2006 [id number] 24 [employer] complet ed anthrax vaccine 04/10/07 Given Ambulat ory Pharmac y typhoid Vi capsular polysaccharid e vac 2006 [id number] 101 sanofi pasteur complet ed typhoid Vi capsular polysacch aride vac 04/10/07 Given Ambulat ory Pharmac y anthrax vaccine 1 2006 [id number] 24 [employer] [place] ([facility]) complet ed anthrax vaccine DoD typhoid Vi capsular polysaccharid e vaccine 1 2006 [id number] 101 Sanofi Pasteur (PMC) complet ed typhoid Vi capsular polysacch aride vaccine DoD influenza virus vaccine,split 2005 [id number] 15 sanofi pasteur complet ed influenza virus vaccine,s plit 04/26/06 Given Ambulat ory Pharmac y influenza virus vaccine, split virus (incl. purified surface antigen)-reti red CODE 1 2005 [id number] 15 Sanofi Pasteur (PMC) complet ed influenza virus vaccine, split virus (incl. purified surface antigen)- retired CODE DoD vaccinia (smallpox) vaccine 2005 [id number] 75 [employer] complet ed vaccinia (smallpox ) vaccine 08/13/05 Given Ambulat ory Pharmac y vaccinia (smallpox) vaccine 1 2005 [id number] 75 [facility] ([facility]) complet ed vaccinia (smallpox ) vaccine DoD influenza virus vaccine,split 2005 [id number] 15 sanofi pasteur complet ed influenza virus vaccine,s plit 06/15/05 Given Ambulat ory Pharmac y influenza virus vaccine, split virus (incl. purified surface antigen)-reti red CODE 1 2005 [id number] 15 Sanofi Pasteur ([facility]) complet ed influenza virus vaccine, split [...] vaccine 0 2004 [id number] 101 Sanofi Pasteur ([facility]) complet ed typhoid Vi capsular polysacch aride vaccine DoD influenza virus vaccine, live 2004 [id number] 111 [employer] Inc comple t ed influenza virus vaccine, live 06/15/04 Given Ambulat ory Pharmac y influenza virus vaccine, live, attenuated, for intranasal use 0 2004 [id number] 111 [employer] Inc[employer] (MED) complet ed influenza virus vaccine, [...] Pharmac y hepatitis A adult vaccine 2003 [id number] 52 GlaxoSmithKli ne complet ed hepatitis [...] hepatitis A vaccine, adult dosage 1 2003 [id number] 52 [employer] (SKB) complet ed hepatitis A vaccine, adult dosage DoD tuberculin purified protein derivative 2003 [id number] 96 sanofi pasteur complet ed tuberculi n purified protein derivativ e 11/24/03 Given Ambulat ory Pharmac y meningococcal polysaccharid e (MPSV4) 2003 [id number] 32 sanofi pasteur complet ed meningoco ccal polysacch aride (MPSV4) 11/24/03 Given Ambulat ory Pharmac y tetanus-dipht h toxoids (Td) adult/adol 2003 [id number] 09 sanofi pasteur complet ed tetanus-d iphth toxoids (Td) adult/ado l 11/24/03 Given Ambulat ory Pharmac y poliovirus vaccine, inactivated 2003 [id number] 10 sanofi pasteur complet ed polioviru s vaccine, inactivat ed 11/24/03 Given Ambulat ory Pharmac y influenza virus vaccine, whole virus 2003 [id number] 16 Novartis Pharmaceutica ls complet ed influenza virus vaccine, whole virus 11/24/03 Given Ambulat ory Pharmac y tetanus and diphtheria toxoids, adsorbed, preservative free, for adult use (2 Lf of tetanus toxoid and 2 Lf of diphtheria toxoid) 0 2003 [id number] 09 Sanofi Pasteur (PMC) complet ed tetanus and diphtheri a toxoids, adsorbed, preservat chirag free, for adult use (2 Lf of tetanus toxoid and 2 Lf of diphtheri a toxoid) DoD poliovirus vaccine, inactivated 0 2003 [id number] 10 Sanofi Pasteur (PMC) complet ed polioviru s vaccine, inactivat ed DoD influenza virus vaccine, whole virus 0 2003 [id number] 16 [employer] ls (PWJ) complet ed influenza virus vaccine, whole virus DoD meningococcal polysaccharid e vaccine (MPSV4) 0 2003 [id number] 32 Sanofi Pasteur (PMC) complet ed meningoco [...] Prevention' s HIV diagnostic algorithm. Refer to [facility] Lab Guide for additional information : 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 07/13 Released w/o Limitations Deni Lolisa francisco j [facility] OUTPATIENT [id number] 09/13 Released w/o Limitations [facility] OUTPATIENT [id number] 12/29 Released w/o Limitations [facility] OUTPATIENT [id number] 01/16 Released w/o Limitations [facility] [place] [place] [address](AFN G [address]) OUTPATIENT [id number] MARGIE VALENZUELA 09/12 Released w/o Limitations [facility] [place] [address](A FNG [address]) [facility] [place] [address](AFN G [address]) OUTPATIENT [id number] Notes Entered by: SEBAS DOMINGUEZ 12 Feb 2018 1456 ------- ------- ------- ------- -- SEBAS LESTER 02/12 Released with Work/Duty Limitations [facility] [place] [address](A FNG [address]) [facility] [place] [address](AFN G [address]) TELE CONSULT [id number] SEBAS DOMINGUEZ 06/20 [facility] [place] [address](A FNG [address]) 8203R-104 MDG Care Not Rendered [id number] 11/30 Discharge Disposition: Home or Self Care 8203R-1 04 MDG 8201R-102 MDG Care Not Rendered [id number] 12/06 Discharge Disposition: Home or Self Care 8201R-1 02 MDG 8201R-102 MDG Care Not Rendered [id number] 12/13 Discharge Disposition: Home or Self Care 8201R-1 02 MDG 8203R-104 MDG Preclinic [id number] 01/17 8203R-1 04 MDG 8203R-104 MDG Preclinic [id number] 01/20 8203R-1 04 MDG Procedures Combined list of: [...] with friends, none for over one year [place] This section is an empty social history section. DoD Assessment and Plan Combined list of future care activities from Department of Defense and Veterans Affairs facilities (e.g., assessment and plan notes, appointments, orders, and referrals). Additional future care activities may be listed in the Plan of Care section. Result Assessment and Plan Date Source Assessment and Plan Extracted from:Title : Annual PHA/MHA Author: EVA GRIMM NP Date: 12/13/24 ANNUAL PERIODIC HEALTH ASSESSMENT I. NURSE ADVOCATE INFORMATION AND DEMOGRAPHICS (SMI) 1. Last Name: ANAHI 2. First Name: KANNAN 3. Middle Name: 4. Assessment Date: 5. : 6. Age: 39 7. Sex: F 8. 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 Service Branch: [employer] 10. 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 Unit Name: [facility] 14. Duty Station/Location: [place] [address]. [facility]: [id number] 16. Is this your first Periodic Health Assessment (PHA)?: N 17. Are you enrolled in a secure messaging system with your health care provider?: 18. Current contact information: Preferred Method: Day Time Phone DSN: [id number] Day Time Phone: [phone] Night Time Phone: [phone] Email 1: [email or web address] Email 2: [email or web address] Address: [address] [place] [address] City: [place] State: [place] Zip Code: [address] 19. Point of contact who can always reach you: Name: Alec Townsend Phone 1: [phone] Phone 2: EMAIL: [email or web address] Address: [address] [place] [address] City: [place] State: [place] Zip Code: [address] II. DEPLOYMENT INFORMATION (DEP) 1. [ 0 ] Total number of deployments in the PAST 5 YEARS 4. [ N ] Are you going to deploy within the NEXT 120 DAYS? III. 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 [ No ] Does your specialty require an operational duty physical exam? 4. [ No ] Are you currently enrolled in a medical surveillance/occupational health program?: No IV. MEDICAL CONDITIONS (MONTSERRAT): 1. Since your last PHA, have you experienced any of the following health conditions, and if so, what is your status? [ ] Conditions with no medical care [ Cancer or history of cancer ] Conditions with medical care, but no longer under treatment [ ] Conditions with medical care, and NOW under treatment 2. Since your last PHA, have you experienced any of the following health conditions, and if so, what is your status? [ ] Conditions with no medical care [ ] Conditions with medical care, but no longer under treatment [ Kidney problems ] Conditions with medical care, and NOW under treatment 3. For any condition marked YES in question 1 or 2, are you currently on any profile or limited duty for that condition? [ ] Conditions 4. [ Yes ] Have you been based or stationed at a location where an open burn pit was used? 5. [ Yes ] Have you been exposed to toxic airborne chemicals or other airborne contaminants? 6. [ No ] Are you enrolled in the Airborne Hazards and Open Burn Pit Registry? 7. [ Yes ] Federal law requires eligible members to enroll in the Airborne Hazards and Open Burn Pit Registry or opt-out. If eligble, choose one: 8. Have you had any surgery since your last PHA?: No 10.a. [ No ] Since your last PHA, has a health care provider recommended surgery(s) that you have not had? 11.a. [ No ] Do you currently require hearing aids, special medical supplies, CPAP, adaptive equipment, assistive technology devices, and/or other special accommodations? 12.a. [ No ] Do you have a waiver or profile for any part of your Service's physical fitness test? 13.a. [ No ] Do you have any problems wearing a gas mask, ballistic helmet, body armor, and/or chemical/biological protective garments? 14.a. [ No ] Have you ever been told by a health care provider that you SHOULD NOT receive an immunization for medical reasons? 15.a. [ No ] Do you have a permanent profile or an Assignment Limitation Code C? 16.a. [ No ] Are you on a temporary profile or limited duty? 17. [ 0 ] During the PAST 2 years, how many times have you been placed on a temporary profile or on limited duty? V. INDIVIDUAL MEDICAL READINESS (IMR) 1. [ No ] Do you have any allergies? 3. [ Not required ] Do you have red medical warning dog tags? 4. [ No ] Do you wear corrective lenses? . BEHAVIORAL HEALTH (MHA) 1. a. [ None ] Over the PAST MONTH, what major life stressors have you experienced that are a cause of significant concern or make it difficult for you to do your work, take care of things at home, or get along with other people (for example, serious conflicts with others, relationship problems, or a legal, disciplinary or financial problem)? 2. a. [ No ] In the PAST YEAR did you receive care for any mental health condition or concern such as, but not limited to post traumatic stress disorder (PTSD), depression, anxiety disorder, alcohol abuse or substance abuse? 3. [ None ] What prescription or over-the counter medications (including herbals/supplements) for sleep, pain, combat stress, or a mental health problem are you CURRENTLY taking? 4. a. [ No ] In the past 12 months, have you gambled? 5. a. [ Monthly or less ] How often do you have a drink containing alcohol? 5. b. [ 1 or 2 ] How many drinks containing alcohol do you have on a typical day when you are drinking? 5. c. [ Never ] How often do you have six or more drinks on one occasion? 6. Have you ever had any experience that was so frightening, horrible, or upsetting that in the PAST MONTH, you: 6. a. [ No ] Have had nightmares about it or thought about it when you did not want to? 6. b. [ No ] Tried hard not to think about it or went out of your way to avoid situations that remind you of it? 6. c. [ No ] Were constantly on guard, watchful or easily startled? 6. d. [ No ] [place] numb or detached from others, activities, or your surroundings? 6. e. [ Not answered ] [place] guilt or unable to stop blaming yourself or others for the event(s) or any problems the event(s) may have caused? 7. Over the LAST 2 WEEKS, how often have you been bothered by the following problems? 7. a. [ Not at all ] Little interest or pleasure in doing things 7. b. [ Not at all ] Feeling down, depressed, or hopeless 8. [ No ] Would you like to schedule an appointment with a health care provider to discuss any health concern(s)? 9. [ No ] Are you interested in receiving information or assistance for a stress, emotional or alcohol concern? 10. [ No ] Are you interested in receiving assistance for a family or relationship concern? 11. [ No ] Would you like to schedule a visit with a sales operations, mental health care provider, or a community support counselor? 12. [ Not answered ] Are you currently being evaluated for, have a current diagnosis or history of, or exhibit symptoms consistent with gender dysphoria? (i.e. distress due to gender identity differing from sex that impacts or limits functioning) VII. FAMILY HISTORY AND LIFESTYLE (LIF) 1. [ Very Good ] Overall, how would you rate your health during the PAST MONTH? 2. [ Canc ] Member indicates that family members have the following problems 3. The following family members has/had a history of cancer: Tracheal Cancer: Grandfather 6. [ Yes ] I participate in moderate intensity physical activites at least 2.5 hours, or a combination of moderate and vigorous aerobic activites, for at least 75 minutes per week. 7. In a typical week, I do physical activities specifically designed to STRENGTHEN my muscles: [ 5 ] Day(s) per week 8. [ None ] What prescriptions or gjpo-niw-otrpgcc medications are you CURRENTLY taking for health problems on a ROUTINE BASIS? 9. Which of the following products have you taken since your last PHA: Multi-Vitamins: Once a day 11. Think about the PAST 30 DAYS. How often did you eat/drink the following foods/beverages? [ 1 serving per day ] Fruits [ 3 or more servings per day ] Vegetables [ 1 serving per day ] Starchy Vegetables [ 1 serving per day ] Whole Grains [ 1 serving per day ] Dairy and Calcium Containing Foods [ 1 or 2 servings per week ] Fish [ 3 or more servings per day ] Lean Protein [ 1 or 2 servings per week ] Sugar-Sweetened Beverages 12. [ Yes ] Have you had a cholesterol check by a health wound care technician within the PAST 5 YEARS? 13.a. In the PAST 30 DAYS, which of the following products have you used on at least one day? None 15. Which of the following best describes your past tobacco use? I have never used tobacco products. 16. [ No ] Are you regularly exposed to secondhand smoke? 17. [ 7 to 9 hours ] During the LAST 2 WEEKS, how many hours of sleep did you get on most days? 18. [ No ] During the LAST 2 WEEKS, have you felt impaired or unable to adequately perform due to sleepiness or poor quality sleep? 19. [ No ] Have you had any unexplained weight loss or gain since your last PHA? 20. Member is not at risk for sexually transmitted infections. 22. Since your last PHA, what, if anything, have you and your partner used to keep from getting ? [ Sterilization ] I am actively taking steps to prevent , including 23. [ No ] In the last year, have you or your partner had a scare, where you were not trying to get but were worried enough to use a home test? VIII. WOMEN'S HEALTH (WOM) 1. [ No ] Do you wish to receive contraceptive counseling? 2. [ I am not now, and was not or delivered in the past 12 months ] Which of the following best describes you? 3. [ No ] Have you had a total hysterectomy? 4. [ No ] Are you postmenopausal and no longer experiencing menstrual cycles? 5. [ No ] Are you currently taking folic acid or a vitamin containing folic acid 6. [ No ] Do you have heavy and/or irregular menstrual cycles/pain or premenstrual syndrome (PMS)? 7. [ No ] Do you have recurrent urinary tract infections? 8. [ Yes ] Have you had a Pap test within the PAST 3 YEARS? 9. [ No ] Have you ever had an abnormal Pap Test? 13. [ No ] Do you have a history of gestational diabetes? IX. RESERVE COMPONENT (RES) 1. [ No ] Do you have an injury, illness, Or disease which was incurred or aggravated while in a duty status since your last PHA? 4. [ Yes - ] Are you currently coverered under a health insurance policy? 5.a. [No, I have never applied for Worker's Compensation ] Do you have any current physical or mental health limitations related to a Worker's Compensation claim? 6. [ No ] Have you applied for or have you received a VA disability rating? X. OTHER MEDICAL (OTH) 1. [ 7 ] Rate the amount of pain you have had, on average, over the PAST 24 HOURS 2. [ Yes ] Are you receiving treatment for pain? 3. [ No ] Since your last PHA, have you received care or treatment for any medical and/or mental health condition(s) from a civilian or non- facility? 5. Member acknowledged responsibility for reporting health issues. 7. [ No ] Woud you like to schedule an appointment with a health care provider to discuss any health concerns? XI. SEPARATION AND INTERMEDIATE 1. 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 PART B. RECORD REVIEW AND RECOMMENDATIONS I. RECORD REVIEWER INFORMATION 1. Last Name: LISA AVELAR 2. First Name: EVA 3. Middle Name: 4. Service Branch: [employer] 5. Status: [employer] 6. 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 EMAIL: [email or web address] 8. Facility: [facility] 9. Unit: [address] [facility] 10. Address: [address] [place] [address] 11. State: [place] 12. Zip Code: [id number] 13. 14. Date Record Review: II. MEDICAL SCREENING 1. 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 [ 5 feet 6 inches D ate: ] bakery team member's most recently documented height 3. [ 165 pounds Date: ] bakery team member's most recently documented weight 4. [ 113/67 Date: ] bakery team member's most recently documented blood pressure reading 5. [ No ] Does the bakery team member have a history of abnormal blood pressure since their last PHA? 6. [ Yes ] Does the bakery team member have a laboratory test of sickle cell trait documented in their permanent medical record? 7. [ No Cholesterol Test Documented ] What is the date of the bakery team member's most recently documented cholesterol test? 9. 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 [ No ] Is there a discrepancy between the active medication record review and the bakery team member's self-reported list of medications? 11. 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 [ No ] Is there a discrepancy between the bakery team member's list of OUTSIDE care (from OT5), and the OUTSIDE care found in the record? 13. [ No Inside Care Documented ] List documented significant care the bakery team member has received since their last PHA from a provider INSIDE the Health System 15. [ Not Answered ] Confirm that vaccine exemptions are listed in the medical record for each vaccine listed IV. FAMILY HISTORY AND LIFESTYLE 1. [ Yes ] Does the [id number] reflect the bakery team member's reported family history? V. WOMEN'S HEALTH 3. [ No Documented Pap Test ] Date and result of the most recent Pap test 4. [ ] Notes from review of health records associated with history of abnormal Pap, colposcopy, excisional procedure, or cryotherapy VII. INDIVIDUAL MEDICAL READINESS 1. [ No ] Does the bakery team member have an Assignment Limitation Code C? 3. [ Classification: 1 ] Most recently documented dental exam 4. [ Yes ] Is the bakery team member current on all required immunizations in the immunization tracking system? 6. Does the bakery team member have the following laboratory tests documented in their permanent medical record? [ Yes ] HIV test within the PAST 24 months [ Yes ] G6PD results on file? [ Yes ] Blood type and Rh on file [ Yes ] DNA test on file IX. ADDITIONAL RECORD REVIEWER COMMENTS 1. This record review does NOT have a need for provider notification or referral.2. Additional comments about this record review that need to be forwarded to the Health Doll Maker completing PART C: JLV and outside records reviewed. SM with h/o hard palate cancer. IRILO to be renewed. Date Record Review Completed: PART C. HEALTH CARE PROVIDER I. MENTAL HEALTH ASSESSMENT (MHA) PROVIDER INFORMATION 1. Last Name: LISA AVELAR 2. First Name: EVA 3. Middle Name: 4. Service Branch: [employer] 5. Status: [employer] Employee 6. 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 EMAIL: 8. Facility: [facility] 9. Unit: [facility] 10. Address: [address] 11. State: [place] 12. Zip Code: [id number] 13. 14. Date HCP Review initiated: 1. Member marked that they did not have a concern or a difficulty with a major life stressor. 2. Address concerns identified on member questions 2 and 3. History of mental health care: N/A Member's response: Provider's comments: Medications: N/A Member's response: Provider's comments: 3. Member's AUDIT-C screening score was 1. (nothing required) 4. Member did not justin yes on two or more of questions 6a through 6e. 5. Member did not justin More than half the days or nearly every day on question 7a or 7b. 6. Suicide risk evaluation. 6. a. Ask: Over the past month, have you wished you were or wished you could go to sleep and not wake up?: No 6. b. Ask: Have you actually had any thoughts of killing yourself?: No 6. f. 1. Ask: In you lifetime, have you done anything, started to do anything, or prepared to do anything to end your life?: No 6. g. Further risk assessment comments: SM denies 7. Member states that they have not had thoughts or concerns over the past month that they might hurt or lose control with someone. 9. Summary of Provider's identified concerns needing referrals: None 11. Comments: No referrals indicated or requested at this time. [place] should member require them in the future, SM verbalized understanding. 13. Supplemental services recommended/information provided: No supplemental services required Date MHA Certified: III. PERIODIC HEALTH ASSESSMENT (PHA) PROVIDER INFORMATION 1. Last Name: LISA AVELAR 2. First Name: EVA 3. Middle Name: 4. Service Branch: [employer] 5. Status: [employer] Employee 6. 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 EMAIL: [email or web address] 8. Facility: [address] [facility] 9. Unit: [address] [facility] 10. Address: [address] [place] [address] 11. State: [place] 12. Zip Code: [id number] 13. 14. Date HCP Review initiated: IV. PERIODIC HEALTH ASSESSMENT PROVIDER RECOMMENDATIONS and REFERRALS 1. Provider concerns with this assessment: Issue or concerns identified after review of bakery team member responses, medical documentation, and Mental Health Assessment. 2. Summary of Provider's identified concerns: - Physical Health Recommended referal(s): Primary Care, Family Practice, Internal Medicine: Within 30 days Referral Time Comments: V. SUMMARY AND COMMENTS 1. Additional information summarizing findings during the bakery team member assessment: 2. Provider Comments: SM with h/o hard palate cancer. IRILO/MEB to be renewed. SM reports that she has been in remission since 2019. SM reported 7/10 kidney stone pain on PHAQ, no pain currently. ABX completed last week and will have f/u ultrasound. SM reports that she is up-to-date with all preventative health screenings. . INDIVIDUAL MEDICAL READINESS DISPOSITION DETERMINATION [place]: Ready DEN: Ready IMM: Ready LAB: Ready? ME: Ready IMR Status: Partially Medically Ready VII. 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 Reference Roberth 6490.07 N o (bakery team member currently has a concern/medical condition that DOES NOT require duty limitation(s), but COULD limit deployability) Date PHA Completed: END OF [id number] REPORT 01/23/2025 [id number] [facility] [place] Functional Status Combined list of recent functional and cognitive assessments recorded at [employer] of Defense and Veterans Affairs (VA).VA Functional Braxton Measurement (FIM) Scale: 1 = Total Assistance (Subject = 0% +), 2 = Maximal Assistance (Subject = 25% +), 3 = Moderate Assistance (Subject = 50% +), 4 = Minimal Assistance (Subject = 75% +), 5 = Supervision, 6 = Modified Braxton (Device), 7 = Complete Braxton (Timely, Safely). Assessment Date/Time Source Assessment Type Assessment Skill Assessment Score Assessment Details No data available for this section
--- OUTSIDE RECORDS SUMMARY | 2025-01-23 10:03 | XMS_ITS | Encounter Summary ---
Author Organization [facility] Address [address] [place] [address] Phone Care Team Providers Care Molder Operator Name Role Phone RileyDonnie Primary Care Provider Fernanda Albright MD Unavailable [phone] Shadi Min MD, DMD Unavailable [phone] Ky Zavala MD, MPH Unavailable + Angeline Campbell CLEAT LAYER Unavailable Froylan Broussard MD Primary Care Provider Froylan Broussard MD Unavailable [phone] Encounter Details Date Type Department Care Team (Late st Contact Info) Description 10/15/2018 Procedure Pass [facility] [address] [place] [address] Social History Tobacco Use Types Packs/Day Years Used Date Smoking Tobacco: Never Smokeless Tobacco: Never Alcohol Use Standard Drinks/Week Comments Yes 0 (1 standard drink = 0.6 oz pur e alcohol) socially on occasion Comments No Sex and Gender Information Value Date Recorded Sex Assigned at Female 05/14/2023 9:42 PM EST Legal Sex Female 10:51 AM EDT Gender Identity Female 05/08/2023 10:05 AM EST Sexual Orientation Straight 05/08/2023 10 :05 AM EST documented as of this encounter Plan of Treatment Not on file documented as of this encounter Visit Diagnoses Not on filedocumented in this encounter Care Teams Molder Operator Relationship Specialty Start Date End Date Donnie Lin DO PCP - General Family Medicine 09/09/18 05/07/23 Froylan Broussard MD [address] [place] [address] PCP - General Family Medicine 05/08/23 Fernanda Albright MD [email or web address] Referring Physician Otolaryngology 09/09/18 Shadi Min MD, DMD [email or web address] Otolaryngology 09/22/18 Ky Zavala MD, MPH [address] [place] [phone] [email or web address] Radiation Oncology 09/22/18 Angeline Campbell CNP [address] [place] [email or web address] Gerontology 09/22/18 Froylan Broussard MD [address] [place] [address] Family Medicine 05/08/23 documented as of this encounter Additional Source Comments The information contained in this document represents components of the legal health record. It is not the complete legal health record.[facility]
== END 2025-01-23 10:15 | disposition home or self-care (01) ==
PROVIDERS: PCP Family Medicine; Visit Provider Nurse Practitioner Family
DX: S19.9XXA Unspecified injury of neck, initial encounter (principal); Z09 Encounter for follow-up examination after completed treatment for conditions other than malignant neoplasm; Z87.828 Personal history of other (healed) physical injury and trauma; Y99.1 Military activity; S00-T88 Injury, poisoning and certain other consequences of external causes; M43.10 Spondylolisthesis, site unspecified

== ENCOUNTER 2025-01-23 09:30 | Outpatient (REF) | payer OTHER, SELFPAY ==
--- NOTE | ~2025-01-23 | XR_ITS ---
EXAMINATION: XR LUMBOSACRAL SPINE CLINICAL INFORMATION: Z87.828 - Personal history of other (healed) physical injury and trauma COMPARISON: Injury. TECHNIQUE: AP and lateral views FINDINGS: Mild multilevel endplate sclerosis. Small marginal osteophyte formation at L2-3 L3-4 levels. No acute cortical disruption or gross malalignment. Facet joint hypertrophy and L5-S1. No lytic or blastic lesions.. XR/XR lumbar spine 4V min IMPRESSION: No acute fracture or trauma-related listhesis. Electronically signed by: Steve Auqino MD 01/23/2025 12:32 PM EDT
--- NOTE | ~2025-01-23 | XR_ITS ---
EXAMINATION: XR CERVICAL SPINE CLINICAL INFORMATION: Z87.828 - Personal history of other (healed) physical injury and trauma COMPARISON: None available. TECHNIQUE: AP, oblique and lateral views FINDINGS: Decreased intervertebral disc height C5-6. Grade 1 retrolisthesis C5-6. Craniocervical junction is intact. No acute cortical disruption. No lytic or blastic lesions. XR/XR cervical spine 4V IMPRESSION: Cervical spondylosis C5-6 resulting in grade 1 retrolisthesis. No acute fracture or trauma-related listhesis. Electronically signed by: Steve Aquino MD 01/23/2025 12:33 PM EDT
--- NOTE | ~2025-01-23 | XR_ITS ---
EXAMINATION: XR THORACIC SPINE CLINICAL INFORMATION: Z87.828 - Personal history of other (healed) physical injury and trauma COMPARISON: None available. TECHNIQUE: AP and lateral views FINDINGS: S-shaped curvature of the thoracolumbar spine. No acute cortical disruption or gross malalignment. Mild multilevel endplate sclerosis and small marginal osteophyte formation at multiple levels. No lytic or blastic lesions. XR/XR thoracic spine 2V IMPRESSION: Mild multilevel spondylosis and scoliosis without acute fracture or trauma-related listhesis. Electronically signed by: Steve Aquino MD 01/23/2025 12:31 PM EDT
== END 2025-01-23 09:31 | disposition home or self-care (01) ==
LOC: HO.HMGCX 09:30
PROVIDERS: PCP Family Medicine; Visit Provider Nurse Practitioner Family
DX: Z09 Encounter for follow-up examination after completed treatment for conditions other than malignant neoplasm (principal); S19.9XXD Unspecified injury of neck, subsequent encounter; S00-T88 Injury, poisoning and certain other consequences of external causes; Y99.1 Military activity; M43.10 Spondylolisthesis, site unspecified; Z87.828 Personal history of other (healed) physical injury and trauma
CPT/HCPCS: 72050; 72070; 72110; 99212

== ENCOUNTER → 2025-01-23 11:55 | Outpatient (BNV) | payer OTHER, SELFPAY | PROVIDERS: PCP Family Medicine; Visit Provider Radiology Diagnostic Radiology | DX: M43.12 Spondylolisthesis, cervical region (principal); M47.816 Spondylosis without myelopathy or radiculopathy, lumbar region; M47.814 Spondylosis without myelopathy or radiculopathy, thoracic region | CPT/HCPCS: 72050; 72070; 72110 ==